=== PATIENT | male | born 1970 | race Caucasian/White ===

== ENCOUNTER 2018-05-17 06:12 | Emergency (ER) | payer MEDICAID, SELFPAY ==
[2018-05-17 06:13] VITALS: BP 132/71; PULSE 63; RESP 15; TEMP 36.6; O2SAT 97; BMI 28.0
--- NOTE | 2018-05-17 06:19 | ED.VISSUMM ---
- ER Visit Summary Date of Service: 05/17/18 Chief Complaint: [] Injury to his left middle and long finger History of Present Illness: The patient is a 47 M injured the above fingers in his garage door yesterday. He accidentally close his garage door manually on them. He cut his middle finger. Comes in for further evaluation. Using ibuprofen. Last tetanus unknown Physical Examination: [] Vital signs reviewed General: Well-nourished well-developed Head: Normocephalic atraumatic Eyes: Pupils equal round and reactive to light extraocular movements intact ENT: TMs clear no hemotympanum no trauma Neck: Nontender full range of motion Cardiovascular: Regular rate rhythm no murmurs normal S1-S2 Respiratory: No distress clear to auscultation bilaterally chest nontender Abdomen: Soft nontender nondistended normal bowel sounds no masses Back: Nontender no CVA tenderness Extremities: Tenderness distal phalanx of the middle and long fingers. Superficial laceration on the distal phalanx of the middle finger. Measures 1 cm Neuro alert oriented cranial nerves II through XII intact normal strength sensation reflexes Test Results: [] Emergency Department Course and Treatment: [] X-ray of the hand obtained. Tetanus updated. X-ray negative. Wound washed with chlorhexidine and local digital block was obtained with lidocaine. Washed with 500 cc of saline. Closed with 3 simple five-point 0 sutures. Finger splint applied. Will follow-up as an outpatient. Treatment Plan: [] Disposition: [] Impression: [] Laceration-finger Finger contusions This note was generated with [employer] dictation software. It may contain incorrect words, spelling, and punctuation that were not noted in review of the chart prior to signing ED Disposition - Plan for ED Patient: Chief Complaint: Upper Extremity Injury Referrals: Puja Hernandez MD [Primary Care Provider] -
--- NOTE | 2018-05-17 06:25 | RAD_ITS ---
STUDY: X-RAY - LEFT HAND REASON FOR EXAM: Male, 47 years old. Trauma to the left-sided index and middle fingers. TECHNIQUE: 3 view(s) of the hand. COMPARISON: Prior comparison studies are not available for review at this time. FINDINGS: Normal radiocarpal articulation. Normal distal radioulnar joint. Normal visualized carpal bones. Normal carpal articulations There is degenerative arthrosis of the carpometacarpal (CMC) articulation of the thumb. Normal second through fifth carpometacarpal joints. Normal metacarpi. Normal metacarpophalangeal joint of the thumb. Normal interphalangeal joint of the thumb. Normal proximal and distal phalanges of the thumb. Normal metacarpophalangeal joints of the second through fifth fingers. Normal proximal and distal interphalangeal joints of the second through fifth fingers. Appears to be an undisplaced fracture of the distal phalanx of the middle finger. The phalanges otherwise have a normal appearance. There is soft tissue swelling. RAD/Hand Min 3 Views IMPRESSION: 1. Undisplaced fracture of the distal phalanx of the middle finger. 2. Soft tissue contusions. Electronically Signed: Tete Lei MD at 7:04 EDT , Service support ,
[2018-05-17] MEDS: Diphth,Pertuss(Acell),Tet Vac 0.5 ML Vial IM (06:38)
--- NOTE | 2018-05-17 07:00 | ED.DEP ---
ED Disposition - Plan for ED Patient: Disposition: Home or Assisted Living Chief Complaint: Upper Extremity Injury Instructions: ED Crush Injury Finger No Fx, ED Laceration All Referrals: Puja Hernandez MD [Primary Care Provider] -
[2018-05-17 07:27] VITALS: BP 124/77; PULSE 68; RESP 17; O2SAT 98
== END 2018-05-17 07:28 | disposition home or self-care (01) ==
PROVIDERS: Emergency Provider Emergency Medicine; Family Provider Internal Medicine; PCP Internal Medicine
DX: S61.213A Laceration without foreign body of left middle finger without damage to nail, initial encounter (principal); S60.022A Contusion of left index finger without damage to nail, initial encounter; S60.032A Contusion of left middle finger without damage to nail, initial encounter; W45.8XXA Other foreign body or object entering through skin, initial encounter; Y93.89 Activity, other specified; Y92.008 Other place in unspecified non-institutional (private) residence as the place of occurrence of the external cause
CPT/HCPCS: 12001; 73130; 90471; 90715; 99283

== ENCOUNTER 2022-04-30 21:03 | Emergency (ER) | payer MEDICAID, SELFPAY ==
[2022-04-30 21:07] VITALS: BP 124/73; PULSE 65; RESP 16; TEMP 36.1; O2SAT 98; BMI 26.6
--- NOTE | 2022-04-30 21:41 | CT_ITS ---
EXAM: CT ABDOMEN AND PELVIS WITH INTRAVENOUS CONTRAST CLINICAL INDICATION: abdominal pain, rectal bleeding TECHNIQUE: Helically acquired images were obtained of the abdomen and pelvis with intravenous contrast. This CT exam was performed using one or more of the following dose reduction techniques: automated exposure control, adjustment of the mA and/or kV according to patient size, and/or use of iterative reconstruction technique. This report was created using [employer] report generation technology. CONTRAST: 100 cc of Isovue-300 IV. RADIATION DOSE: CTDIvol = 15.85 mGy, DLP = 1010.87 mGy-cm. COMPARISON: None. FINDINGS: LOWER THORAX: Unremarkable. Lung bases are clear. No cardiomegaly. No significant pericardial effusion. ABDOMEN: LIVER: Unremarkable. Homogeneous. No focal mass. GALLBLADDER AND BILE DUCTS: Slight high density in the gallbladder may be due to cholelithiasis. No gallbladder distention or wall edema. No intra- or extrahepatic biliary ductal dilation. PANCREAS: Unremarkable. No focal cystic or solid mass. SPLEEN: Unremarkable. Normal size without focal cystic or solid mass. ADRENALS: Unremarkable. No nodules. KIDNEYS AND URETERS: Unremarkable. Normal renal size and position. No hydronephrosis. STOMACH AND BOWEL: Moderate wall thickening of the descending colon through the rectum with mild pericolonic stranding. No stomach or bowel distention. PELVIS: APPENDIX: Normal appendix. BLADDER: Unremarkable. REPRODUCTIVE: Mild enlargement of the prostate measuring 5.2 cm in diameter. ABDOMEN and PELVIS: INTRAPERITONEAL SPACE: Unremarkable. No ascites or other fluid collection. No free air. BONES/JOINTS: Unremarkable. No suspicious lytic or blastic abnormality. SOFT TISSUES: Unremarkable. No discrete abdominal or pelvic wall hernia. VASCULATURE: Unremarkable. Abdominal aorta is non-dilated. LYMPH NODES: Unremarkable. No enlarged lymph nodes. CT/Abdomen/Pelvis W IV Cont ONLY IMPRESSION: 1. Colitis involving the descending colon to the rectum. This may be due to infection or inflammatory bowel disease such as ulcerative colitis. 2. Slight high density in the gallbladder may be due to cholelithiasis. Electronically Signed: Edgar Basurto MD at 23:24 EDT ,
--- NOTE | 2022-04-30 21:42 | EDS_ITS ---
HPI HPI - GI History of Present Illness Chief Complaint: GI Bleed Detail of Chief Complaint: Abdominal pain and rectal bleeding Informant: patient Narrative Narrative: Patient presents to the emergency department complaint of abdominal pain and rectal bleeding that started 7 weeks ago. Patient states that with every bowel movement he has bright red blood. He describes abdominal pain and cramping intermittently. Patient saw his primary care physician recently who did blood work last week and apparently has blood counts looked good. Patient was referred to GI for follow-up but not till next month. Patient does not have a family history of colon cancer or history of inflammatory bowel disease. He denies fevers. Patient is never had a colonoscopy. Prior similar symptoms: No PFSH [facility] Medical History (Updated 04/30/22 @ 23:[address] Sanjana Bang, DO) Diabetes Enlarged prostate PTSD (post-traumatic stress disorder) Home Medications sertraline 100 mg tablet 100 mg PO DAILY 05/17/18 [History Last Taken 05/16/18] terazosin 5 mg capsule 5 mg PO BID 05/17/18 [History Last Taken 05/16/18] ciprofloxacin HCl 500 mg tablet 500 mg PO BID #20 TABLETS 04/30/22 [Rx Last Taken Unknown] metformin 500 mg tablet 1,000 tab PO BID 04/30/22 [History Last Taken Unknown] metronidazole 500 mg tablet 500 mg PO TID #30 tabs 04/30/22 [Rx Last Taken Unknown] Allergy/AdvReac Type Severity Reaction Status Date / Time No Known Allergies Allergy Verified 04/30/22 21:09 Social History Smoking Status: Former smoker ROS ROS ED Review of Systems ROS Unobtainable: other Constitutional Constitutional ED: Reports lethargy; Denies chills, fever(s), sweats or weight loss Eyes Eyes: Denies blurry vision, change in vision or diplopia ENT ENT ED: Denies rhinorrhea or sore throat Cardiovascular Cardiovascular: Reports chest pain and racing heartbeat; Denies orthopnea Respiratory/Chest Respiratory/Chest: Reports dyspnea and dyspnea on exertion; Denies cough, orthopnea or sputum Gastrointestinal Gastrointestinal: Reports abdominal pain and other Details: Bright red blood per rectum ; Denies diarrhea, nausea or vomiting Genitourinary Genitourinary ED: Denies dysuria, hematuria or urinary frequency Musculoskeletal Musculoskeletal: Denies arthralgias, back pain, myalgias or neck pain Integumentary Denies abscess, Abrasions or rash Neurologic Neurologic: Denies headache(s) or weakness Psychiatric Psychiatric: Denies anxiety, depression or suicidal thoughts Endocrine Endocrinology: Denies polydipsia, polyphagia or polyuria Hematologic/Lymphatic Hematologic/Lymphatic: Denies easy bleeding, easy bruising or lymphadenopathy Allergic/Immunologic Allergic/Immunologic ED: Denies mouth swelling, tongue swelling or urticaria EXAM Physical Exam Const Vital Signs: 04/30/22 21:07 Temperature 96.9 F L Temperature Source Temporal Pulse Rate 65 Respiratory Rate 16 Blood Pressure 124/73 H Blood Pressure Mean 90 Pulse Ox 98 Oxygen Delivery Method Room Air Positive well nourished and well developed General Appearance ED: well developed and NAD HEENT Reports TM's clear and moist mucous membranes normocephalic and atraumatic; Negative for trauma or tenderness Tympanic Membrane ED: Yes TM's clear Eyes PERRL and EOMs intact bilaterally General Eye ED: Negative for pale conjunctiva or scleral icterus Neck no lymphadenopathy, supple and no JVD General: Negative for tenderness Chest Wall inspection of chest normal and palpation of chest normal Chest: Negative for tenderness Resp normal respiratory effort and clear to auscultation bilaterally Effort and Inspection: Negative for respiratory distress or pain with movement Auscultation: Negative for rhonchi, wheezes or diminished lung sounds Cardio regular rate, regular rhythm, S1 normal heart sound, S2 normal heart sound and no murmurs Peripheral Pulses: pulses 2+ throughout GI normal to inspection, nondistended, normoactive bowel sounds, soft to palpation, non-distended and no masses GI Narrative: Patient has diffuse tenderness palpation of the abdomen. There is no rebound, rigidity, or peritoneal signs. Rectal exam performed and did not show any hemorrhoids or fissures. On digital rectal exam no masses palpated in the rectal vault. He had bright red blood on exam. Back/Spine no CVA tenderness and no thoracic nor lumbar tenderness Extremity normal to inspection General Extremety ED: Negative for edema General Extremity: Negative for edema Neuro oriented x3, CN's II-XII intact bilaterally, no sensory deficits noted and gait normal Sensorium / Orientation: awake, alert, oriented to person, oriented to place and oriented to time Motor Exam: strength 5/5 throughout and strength abnormal Psych mental status grossly normal Skin no rashes or lesions noted and no wounds MDM MDM MDM Narrative Medical decision making narrative: IV line established on arrival. Lab work-up essentially unremarkable and lactate was 1.5. Patient had a CT scan of the abdomen pelvis with IV contrast that was read by radiology as colitis involving the descending colon to the rectum. This may be due to infection or inflammatory bowel disease such as ulcerative colitis. Case was discussed with general surgeon on-call who asked that we place patient on antibiotics and have him follow-up with their office. Lab Data Attestation: I reviewed the patient's lab results. Labs: Laboratory Results - last 24 hr 04/30/22 04/30/22 04/30/22 21:50 21:50 21:50 WBC 11.1 H RBC 4.38 L Hgb 13.0 Hct 38.6 L MCV 88.1 MCH 29.7 MCHC 33.7 RDW Std Deviation 42.4 RDW Coeff of Caryn 13.2 Plt Count 329 MPV 9.4 Immature Gran % (Auto) 0.700 Neut % (Auto) 66.5 Lymph % (Auto) 16.9 L Dukes % (Auto) 9.5 Eos % (Auto) 5.8 H Baso % (Auto) 0.6 Absolute Neuts (auto) 7.4 Absolute Lymphs (auto) 1.87 Nucleated RBC % 0 Sodium 140 Potassium 4.0 Chloride 106 Carbon Dioxide 29.0 Anion Gap 5 BUN 19 H Creatinine 1.01 Estim Creat Clear Calc 76.33 Est GFR (MDRD) Af Amer 99 Est GFR (MDRD) Non-Af 82 BUN/Creatinine Ratio 18.8 Glucose 145 H Lactic Acid 1.5 Calcium 9.1 Total Bilirubin 0.30 AST 16 ALT 23 Alkaline Phosphatase 42 L Total Protein 6.8 Albumin 3.3 Globulin 3.5 Albumin/Globulin Ratio 0.9 Radiography Diagnostic Testing: Clinical Impression(s) from Imaging Studies Abdomen/Pelvis CT 04/30/22 21:41 IMPRESSION: 1. Colitis involving the descending colon to the rectum. This may be due to infection or inflammatory bowel disease such as ulcerative colitis. 2. Slight high density in the gallbladder may be due to cholelithiasis. Electronically Signed: Edgar Basurto MD at 23:24 EDT , Discharge Plan Triage Chief Complaint: GI Bleed ED Provider: Sanjana Bang Dx/Rx/DC Orders Clinical Impression: Colitis, Rectal bleed Instructions: Bleeding Gastrointestinal, ED Understanding Colitis, ED Lower GI Bleeding (Stable) Prescriptions: New ciprofloxacin HCl [ciprofloxacin HCl] 500 MG tablet 500 mg PO BID Qty: 20 0RF metronidazole 500 mg tablet 500 mg PO TID Qty: 30 0RF No Action terazosin 5 MG capsule 5 mg PO BID sertraline 100 MG tablet 100 mg PO DAILY Label Comments: TAKE 1 TABLET EVERY DAY metformin 500 mg tablet 1,000 tab PO BID Label Comments: TAKE 2 TABLETS BY MOUTH TWICE DAILY WITH MEALS Primary Care Provider: Puja Hernandez Referrals: Puja Hernandez MD [Primary Care Provider] - Allyson Cason MD [STAFF PHYSICIAN] - 3-5 Days Disposition Disposition: Home, Self Care
[2022-04-30] MEDS: 0.9% Normal Saline 1,000 ML 125 ML IV (21:54)
[2022-04-30 22:04] LABS: Absolute Lymphocyte Count 1.87 X10^3/uL (0.83-4.51); Absolute Neutrophil Count 7.4 X10^3/uL (2.0-7.7); Basophil# 0.07 X10^3/uL; Basophil% 0.6 % (0-1); Eosinophil# 0.64 X10^3/uL; Eosinophils% 5.8 % (0-5); Hematocrit 38.6 % (40-54); Lymphocyte # 1.87 X10^3/ul (0.83-4.51); Lymphocyte % 16.9 % (19-41); Mean Corp Hgb Conc 33.7 g/dL (32-36); Mean Corpuscular Hgb 29.7 pg (27.0-32.0); Mean Corpuscular Volume 88.1 fL (80-94); Mean Platelet Vol. 9.4 fl (6.2-12.0); Monocyte# 1.05 X10^3/uL; Monocyte% 9.5 % (0-10); NRBC Flagged by Analyzer 0 % (0-5); Neutrophil # 7.38 X10^3/uL (2.7-7.7); Neutrophil % 66.5 % (47-70); Platelet Count 329 K/mm3 (150-450); RBC Distribution Width CV 13.2 % (11.6-14.6); RBC Distribution Width SD 42.4 fl (35.1-43.9); Red Blood Count 4.38 M/mm3 (4.6-6.2); White Blood Count 11.1 K/mm3 (4.4-11.0)
[2022-04-30 22:34] LABS: ALB/GLOB Ratio 0.9 RATIO (0.9-2.4); AST(SGOT) 16 U/L (15-37); Alanine Aminotransfer ALT/SGPT 23 U/L (16-61); Albumin, Serum 3.3 g/dL (3.2-5.0); Alkaline Phosphatase 42 U/L (45-117); Anion Gap 5 (5-15); BUN 19 mg/dL (7-18); BUN/Creat Ratio 18.8 RATIO (10-20); Calcium,Total 9.1 mg/dL (8.5-10.1); Chloride 106 mmol/L (98-107); Creatinine, Serum 1.01 mg/dL (0.70-1.30); EST Glomerular Filtration Rate 82 mL/min (>60); Est Glom Filt Rate - Afr Amer 99 mL/min (>60); Estimated Creatinine Clearance 76.33 ml/min; Globulin 3.5 g/dL (2.2-4.2); Glucose 145 mg/dL (74-106); Protein, Total 6.8 g/dL (6.4-8.2); Sodium Level 140 mmol/L (136-145)
[2022-04-30 22:35] LABS: Lactic Acid 1.5 mmol/L (0.4-1.9)
[2022-04-30] MEDS: metroNIDAZOLE 500 MG Tablet PO (23:57)
[2022-04-30] MEDS: Ciprofloxacin 500 MG Tablet PO (23:57)
== END 2022-05-01 00:08 | disposition home or self-care (01) ==
PROVIDERS: Emergency Provider Emergency Medicine; PCP Internal Medicine; Visit Provider Emergency Medicine
DX: K52.9 Noninfective gastroenteritis and colitis, unspecified (principal); E11.9 Type 2 diabetes mellitus without complications; Z79.84 Long term (current) use of oral hypoglycemic drugs; Z87.891 Personal history of nicotine dependence; Z80.0 Family history of malignant neoplasm of digestive organs
CPT/HCPCS: 74177; 80053; 83605; 85025; 96360; 96361; 99283; J7030; Q9967; A4216

== ENCOUNTER 2022-05-10 07:13 | Day surgery (SDC) | payer MEDICAID, SELFPAY ==
[2022-05-10 07:45] VITALS: BP 107/62; PULSE 68; RESP 18; TEMP 36.4; O2SAT 99; BMI 25.6
[2022-05-10] MEDS: Lactated Ringers 1,000 ML 15 ML IV (07:50)
--- NOTE | 2022-05-10 08:08 | HP.PCM_ITS ---
History and Physical Date of Admission: 05/10/22 Date of Service:? 05/04/22 MR#: [id number] Acct: [id number] Name:ERWIN STEVENSON Rep #: [id number] : 1970 ? ? Provider: Dr. Allyson Cason MD Age/Sex:? 51/M ? ? Location: [facility] Status: Signed Intake Vital Signs ? 04/30/2221:07 05/04/2208:34 Height 5 ft 6 in 5 ft 6 in Weight: 165 lb 166 lb BMI 26.6 26.8 BP 124/73 H 102/63 Blood Pressure Location ? Rt brachial Position ? Sitting Respiration 16 17 Pulse 65 63 Pulse Source ? Monitor Temp 96.9 F L 97.3 F L Temp Source Temporal Temporal Pulse Oximetry (%) 98 98 Oxygen Delivery Method ? 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 Is patient in pain?: No Allergies No Known Allergies Allergy (Verified 05/04/22 08:35) Medications sertraline 100 mg tablet 100 mg PO DAILY 05/17/18 [History Confirmed 05/04/22] terazosin 5 mg capsule 5 mg PO BID 05/17/18 [History Confirmed 05/04/22] ciprofloxacin HCl 500 mg tablet 500 mg PO BID #20 TABLETS 04/30/22 [Rx Confirmed 05/04/22] metformin 500 mg tablet 1,000 tab PO BID 04/30/22 [History Confirmed 05/04/22] metronidazole 500 mg tablet 500 mg PO TID #30 tabs 04/30/22 [Rx Confirmed 05/04/22] PFSH Medical History?(Updated 05/04/22 @ 08:33 by Sintia Sunday) Diabetes Enlarged prostate Hemorrhoids PTSD (post-traumatic stress disorder) Family History?(Updated 05/04/22 @ 08:34 by Sintia Sunday) Father Diabetes Hypertension Kidney diseaseMother Diabetes Hypertension Heart disease CVA (cerebral vascular accident)Sister Diabetes Social History?(Updated 05/04/22 @ 08:34 by Sintia Sunday) Smoking Status:? Former smoker alcohol intake:? never substance use type:? does not use HPI HPI Surgical H&P: Yes HPI: ERWIN QIU, is a 51 M who presents to the office today for colitis.? Patient states for about the last 7 weeks he has had bright red blood per rectum has had clots with this as well.? Patient never had this previously.? Patient also more recently has started having increased diarrhea.? Patient went to the ER CT abdomen pelvis was done which showed colitis of the descending colon to rectum.? Patient was given Cipro and Flagyl by the ER.? Since starting the antibiotics patient states bleeding has decreased.? Patient denies having any abdominal pain prior to starting the antibiotics now states that he can have discomfort in his abdomen especially after eating.? Patient never had a previous colonoscopy.? Denies any family history of colon cancer. ROS General General: Yes weight change and fatigue; No appetite, colon cancer, breast cancer or weakness HEENT HEENT: No difficulty swallowing, eye injury, eye surgery, swollen glands or hoarseness Endo Endocrine: Yes diabetes mellitus; No thyroid disease, thyroid cancer, Hair loss, heat intolerance or cold intolerance Skin Skin: No rash or changing moles Musc Musculoskeletal: No back problems, arthritis, rheumatoid arthritis, gout or joint pain Cardio Cardiovascular: No murmur, pacemaker, heart disease, atrial fibrillation, high blood pressure, heart attack, heart stent, palpitations, shortness of breat with exertion or chest pain Psych Psychiatric: No depression, anxiety or hearing voices Resp Respiratory: Yes shortness of breath, No sleep apnea, Yes cough, No COPD, No asthma, No emphysema and No wheezing Gastro Gastrointestinal: Yes abdominal pain, Yes nausea or vomiting, Yes diarrhea, No constipation, Yes blood in stool, Yes acid reflux, Yes hemorrhoids, No ulcers, No gallbladder problem and No black,tarry stools Seth Hematologic: No blood thinners, No blood disorders, No bleeding, No anemia and No blood clots Neuro Neurologic: No system reviewed and no additional complaints, except as documented, No as per HPI, No abnormal gait, No abnormal hearing, No abnormal movements, No abnormal speech, No behavioral changes, No burning sensations, No confusion, No convulsions, No disequilibrium, No dizziness, No localized weakness, No frequent falls, No headache(s), No lack of coordination, No loss of vision, No memory loss, No numbness, No other visual disturbances, No radicular pain, No restless legs, No sensory deficit, No syncope, Yes tingling (arms), No tremor(s), No weakness and No other Exam Const General: cooperative, healthy appearing and no acute distress [facility] Head: normal to inspection Resp Effort & Inspection: normal respiratory effort Cardio Rate: regular rate GI Inspection: non-distended Palpation: soft, no guarding, no hernias and tender in the LLQ and in the LUQ; with no rebound tenderness Skin General: no rashes or lesions noted Neuro General: patient oriented x3 Extrem General: no clubbing, cyanosis or edema Psych Affect: normal affect COVID (Procedure Consent) Procedure Criteria Procedure Criteria: Yes Elective The surgeon/proceduralist and patient have discussed in detail the risk of exposure to and/or potential harm posed by the COVID-19 virus with having a surgery/procedure at this time versus the risk of? delaying the surgery/procedure. It is not possible to know either the risk of delaying the surgery or procedure or chance of getting an infection with perfect accuracy, but a joint decision was made between the patient and the surgeon/proceduralist ?to proceed at this time with the scheduled surgery/procedure as indicated on the consent form. Assessment and Plan Assessment and Plan (1) Rectal bleed: ?Status:?Acute (2) Colitis: ?Status:?Acute (3) Diarrhea: ?Status:?Acute Plan I have discussed the above with the patient. I have offered the patient colonoscopy for evaluation.? Discussed with patient that the colitis does look quite involved/severe may just get biopsies and abort the rest of the colonoscopy. I have explained the risks/benefits of the procedure and described the procedure.? I have discussed the risks with the patient, including but not limited to:? infection, bleeding, perforation of the GI tract requiring emergency surgery, inability to complete the procedure, injury to any internal organs, complications of anesthesia, etc. - the patient understands and agrees to proceed. I have answered all the patient's questions to the patient's satisfaction and the patient has no further questions. The patient has been given instructions for the colon cleansing preparation.? 1 day of clears, MiraLAX Dulcolax split prep. Allyson Cason M.D. Pager: [phone] [facility] [address] [place] [address], [address] [place] [address] Office: [phone] Coding Level of Care Code Off vis,new,level 3 Diagnoses Rectal bleed? K62.5 Colitis? K52.9 Diarrhea? R19.7 05/04/22 0919 <Electronically signed by Allyson Cason MD> Date Allyson Cason MD
--- NOTE | 2022-05-10 09:00 | COLBX_PTH ---
PATIENT: ERWIN QIU LOC: EN U#:[id number] AGE/SX: 51/M ROOM: RE05/10/[address]: Dr. Allyson Cason MD : 1970 BED: DIS: 05/10/2022 SPEC #: [id number] RECD: 05/10/22 10:54 STATUS: ERIKA RESagrario #: [id number] ANDERSON: 05/10/22 09:[address]: Allyson Cason DEPT: SURGICAL PATHOLOGY RECD BY: Linda Vinson ENTERED: 05/10/22 11:26 SP TYPE: COLON BX OTHR DR: Dr. Puja Hernandez MD Tissues: A - Ileum, NOS B - Ascending colon C - Transverse colon D - Descending colon E - Sigmoid colon biopsy F - Rectum, NOS Procedures: Surgery Specimen Level IV HEADER OPERATION: Colonoscopy (MAC) PRE-OP DIAGNOSIS: Rectal bleed, colitis, diarrhea TISSUE SUBMITTED: A ? Terminal ileum biopsy, B ? Ascending colon biopsy, C ? Transverse colon biopsy, D ? Descending colon biopsy, E ? Sigmoid colon biopsy, F ? Rectum biopsy MICROSCOPIC DIAGNOSIS A. Terminal ileum, biopsy: A fragment of small intestinal mucosa, no pathologic diagnosis. B. Ascending colon, biopsy: Moderate chronic active colitis. See microscopic description and comment. C. Transverse colon, biopsy: Moderate chronic active colitis. See microscopic description and comment. D. Descending colon, biopsy: Moderate chronic active colitis. See microscopic description and comment. E. Sigmoid colon, biopsy: Moderate chronic active colitis. See microscopic description and comment. F. Rectum, biopsy: Moderate chronic active colitis. See microscopic description and comment. SJ:rg 05/11/2022 COMMENT B-F. The findings are consistent with inflammatory disease (ulcerative colitis). Correlation with clinical, endoscopic findings and appropriate follow up are necessary. MICROSCOPIC DESCRIPTION Slides are reviewed. B-F. The specimens show similar morphological features. The specimens show fragments of colonic mucosa with moderate acute and chronic inflammatory cells infiltrates in the lamina propria, cryptitis, crypt abscesses and minimal glandular distortion. No evidence of dysplasia. GROSS DESCRIPTION A - Received in fixative is one container labeled with the patient's name and designated terminal ileum biopsy. The specimen consists of one irregular fragment of light costa soft tissue that measures 0.3 x 0.3 x 0.1 cm. The specimen is totally submitted in one cassette. B - Received in fixative is one container labeled with the patient's name and designated ascending colon biopsy. The specimen consists of two irregular fragments of light costa soft tissue that in aggregate measure 0.6 x 0.3 x 0.1 cm. The specimen is totally submitted in one cassette. C - Received in fixative is one container labeled with the patient's name and designated transverse colon biopsy. The specimen consists of multiple irregular fragments of light costa soft tissue that in aggregate measure 1 x 0.2 x 0.1 cm. The specimen is totally submitted in one cassette. D - Received in fixative is one container labeled with the patient's name and designated descending colon biopsy. The specimen consists of multiple irregular fragments of light costa soft tissue that in aggregate measure 0.5 x 0.3 x 0.1 cm. The specimen is totally submitted in one cassette. E - Received in fixative is one container labeled with the patient's name and designated sigmoid colon biopsy. The specimen consists of two irregular fragments of light costa soft tissue that in aggregate measure 0.6 x 0.3 x 0.1 cm. The specimen is totally submitted in one cassette. F - Received in fixative is one container labeled with the patient's name and designated rectum biopsy. The specimen consists of one irregular fragment of light costa soft tissue that measures 0.3 x 0.3 x 0.1 cm. The specimen is totally submitted in one cassette. / SJ:nika 05/10/2022 TC:2 CPT: 89831 x6
[2022-05-10 09:01] LABS: Bedside Glucose 104 mg/dL (74-106)
[2022-05-10 09:37] VITALS: BP 107/62; BP 98/58; PULSE 69; RESP 16; TEMP 36.6; O2SAT 100
--- NOTE | 2022-05-10 09:42 | OP.COLON_ITS ---
Patient Name: Edis Duenas Procedure Date: 05/10/2022 9:06 AM Date of : 1970 Age: 51 Procedure: Colonoscopy Indications: Gastrointestinal occult blood loss, Abnormal CT of the GI tract Providers: Allyson Cason MD Referring MD: Puja Hernandez Medicines: Monitored Anesthesia Care Patient Profile: This is a 51 year old male. Last Colonoscopy: none. The patient's first colonoscopy is today. Complications: No immediate complications. Procedure: Pre-Anesthesia Assessment: - Prior to the procedure, a History and Physical was performed, and patient medications and allergies were reviewed. The patient's tolerance of previous anesthesia was also reviewed. The risks and benefits of the procedure and the sedation options and risks were discussed with the patient. All questions were answered, and informed consent was obtained. Prior Anticoagulants: The patient has taken no previous anticoagulant or antiplatelet agents. ASA Grade Assessment: Per anesthesia. After reviewing the risks and benefits, the patient was deemed in satisfactory condition to undergo the procedure. After I obtained informed consent, the scope was passed under direct vision. Throughout the procedure, the patient's blood pressure, pulse, and oxygen saturations were monitored continuously. The pediatric colonoscope was introduced through the anus and advanced to the terminal ileum. The colonoscopy was performed without difficulty. The patient tolerated the procedure well. The quality of the bowel preparation was good. Scope In: 9:16:45 AM Scope Withdrawal Time 0 hours 8 minutes 37 seconds Scope Out: 9:32:03 AM Total Procedure Duration Time 0 hours 15 minutes 18 seconds Findings: The perianal and digital rectal examinations were normal. A continuous area of bleeding ulcerated mucosa with stigmata of recent bleeding was present in the entire colon. Five random biopsies were obtained with cold forceps for histology in a targeted manner in the rectum, in the sigmoid colon, in the descending colon, in the transverse colon and in the ascending colon. Biopsies were taken with a cold forceps for histology. The terminal ileum appeared normal. Biopsies were taken with a cold forceps for histology. Impression: - Mucosal ulceration. Biopsied. - The examined portion of the ileum was normal. Biopsied. - Five random biopsies were obtained in the rectum, in the sigmoid colon, in the descending colon, in the transverse colon and in the ascending colon. Recommendation: - Discharge patient to home. - Resume previous diet. - Continue present medications. - Await pathology results. - Refer to a boom operator at appointment to be scheduled. - Repeat colonoscopy for surveillance based on pathology results. Procedure Code(s): --- Professional --- 49422, PT, Colonoscopy, flexible; with biopsy, single or multiple Diagnosis Code(s): --- Professional --- K63.3, Ulcer of intestine R19.5, Other fecal abnormalities R93.3, Abnormal findings on diagnostic imaging of other parts of digestive tract CPT copyright 2017 [employer] [place] [employer] [employer]. All rights reserved. The codes documented in this report are preliminary and upon broadband technician review may be revised to meet current compliance requirements. MD Allyson Brito MD 05/10/2022 9:41:58 AM This report has been signed electronically. Number of Addenda: 0 Note Initiated On: 05/10/2022 9:06 AM
--- NOTE | 2022-05-10 09:43 | OP.CCLET_ITS ---
05/10/2022 Puja Hernandez [address] [place] [address] Re : Colonoscopy procedure for Edis Duenas Dear Dr. Hernandez This procedure was performed on Tuesday, May 10, 2022. My impressions and recommendations are as follows: Impressions : - Mucosal ulceration. Biopsied. - The examined portion of the ileum was normal. Biopsied. - Five random biopsies were obtained in the rectum, in the sigmoid colon, in the descending colon, in the transverse colon and in the ascending colon. Recommendations : - Discharge patient to home. - Resume previous diet. - Continue present medications. - Await pathology results. - Refer to a home office claim specialist at appointment to be scheduled. - Repeat colonoscopy for surveillance based on pathology results. My findings are described in the full procedure note, which is enclosed. If I can be of further assistance, please feel free to contact me at Doctor phone number(s): , Work: . Sincerely, MD Allyson Brito MD 05/10/2022 9:41:58 AM This report has been signed electronically.
[2022-05-10 09:45] VITALS: BP 107/62; BP 95/55; PULSE 65; RESP 16; O2SAT 100
[2022-05-10 09:50] VITALS: BP 107/62; BP 115/72; PULSE 66; RESP 16; O2SAT 100
[2022-05-10 09:54] VITALS: BP 107/62; BP 109/68; PULSE 68; RESP 16; TEMP 36.6; O2SAT 100
[2022-05-10 10:15] VITALS: BP 107/62
== END 2022-05-10 10:19 | disposition home or self-care (01) ==
LOC: EN 07:14 → AC 07:15
PROVIDERS: PCP Internal Medicine; Referring Provider Internal Medicine; Visit Provider Surgery
PROC: 0DJD8ZZ Inspection of Lower Intestinal Tract, Via Natural or Artificial Opening Endoscopic (ICD-10-PCS; CPT 45378; principal; 2022-05-10 08:55)
DX: K52.9 Noninfective gastroenteritis and colitis, unspecified (principal); E11.9 Type 2 diabetes mellitus without complications; K63.3 Ulcer of intestine; R93.3 Abnormal findings on diagnostic imaging of other parts of digestive tract; R19.5 Other fecal abnormalities; K62.5 Hemorrhage of anus and rectum; N40.0 Benign prostatic hyperplasia without lower urinary tract symptoms; F43.10 Post-traumatic stress disorder, unspecified; Z79.84 Long term (current) use of oral hypoglycemic drugs; Z79.899 Other long term (current) drug therapy; Z87.891 Personal history of nicotine dependence
CPT/HCPCS: 45380; 82962; 87426; 88305; C9803; J7120; J2405

== ENCOUNTER → 2022-05-12 | Outpatient (CLI) | payer MEDICAID, SELFPAY ==
[2022-05-12 13:47] LABS: Erythrocyte Sedimentation Rate 24 mm/hr (0-20)
[2022-05-12 13:49] LABS: Absolute Lymphocyte Count 0.68 X10^3/uL (0.83-4.51); Absolute Neutrophil Count 14.6 X10^3/uL (2.0-7.7); Basophil# 0.05 X10^3/uL; Basophil% 0.3 % (0-1); Eosinophil# 0.01 X10^3/uL; Eosinophils% 0.1 % (0-5); Hematocrit 36.7 % (40-54); Hemoglobin 12.5 g/dL (13.0-16.5); Lymphocyte # 0.68 X10^3/ul (0.83-4.51); Lymphocyte % 4.3 % (19-41); Mean Corp Hgb Conc 34.1 g/dL (32-36); Mean Corpuscular Hgb 29.4 pg (27.0-32.0); Mean Corpuscular Volume 86.4 fL (80-94); Mean Platelet Vol. 9.1 fl (6.2-12.0); Monocyte# 0.46 X10^3/uL; Monocyte% 2.9 % (0-10); NRBC Flagged by Analyzer 0 % (0-5); Neutrophil # 14.58 X10^3/uL (2.7-7.7); Neutrophil % 91.1 % (47-70); Platelet Count 427 K/mm3 (150-450); RBC Distribution Width CV 13.7 % (11.6-14.6); RBC Distribution Width SD 42.7 fl (35.1-43.9); Red Blood Count 4.25 M/mm3 (4.6-6.2)
[2022-05-12 14:03] LABS: ALB/GLOB Ratio 0.8 RATIO (0.9-2.4); AST(SGOT) 14 U/L (15-37); Alanine Aminotransfer ALT/SGPT 22 U/L (16-61); Albumin, Serum 3.2 g/dL (3.2-5.0); Alkaline Phosphatase 41 U/L (45-117); Anion Gap 6 (5-15); BUN 13 mg/dL (7-18); BUN/Creat Ratio 14.3 RATIO (10-20); Calcium,Total 9.1 mg/dL (8.5-10.1); Chloride 106 mmol/L (98-107); Creatinine, Serum 0.91 mg/dL (0.70-1.30); EST Glomerular Filtration Rate 92 mL/min (>60); Est Glom Filt Rate - Afr Amer 111 mL/min (>60); Globulin 3.9 g/dL (2.2-4.2); Glucose 168 mg/dL (74-106); LDH 198 U/L (87-241); Potassium 3.7 mmol/L (3.5-5.1); Protein, Total 7.1 g/dL (6.4-8.2); Sodium Level 138 mmol/L (136-145)
[2022-05-15 13:07] LABS: Anti-Centromere B Ab <0.2 AI (0.0-0.9); Anti-Chromatin <0.2 AI (0.0-0.9); Anti-Jo <0.2 AI (0.0-0.9); Anti-Scleroderma-70 AB <0.2 AI (0.0-0.9); RNP Ab <0.2 AI (0.0-0.9); SJOGREN'S Anti-SS-A test < 0.2 AI (0.0-0.9); SJOGREN'S Anti-SS-B test < 0.2 AI (0.0-0.9); Smith Ab <0.2 AI (0.0-0.9)
[2022-05-15 14:12] LABS: Anti-dsDNA Ab <1 IU/mL (0-9)
[2022-05-15 17:07] LABS: Endomysial Antibody IgA Negative (Negative)
[2022-05-15 21:01] LABS: Immunoglobulin A 199 mg/dL (90-386); t-Transglutaminase IgA <2 U/mL (0-3)
== END | disposition home or self-care (01) ==
LOC: LAB 13:24
PROVIDERS: PCP Internal Medicine; Visit Provider Surgery
DX: K51.90 Ulcerative colitis, unspecified, without complications (principal)
CPT/HCPCS: 86480; 36415; 80053; 80074; 82784; 82785; 83516; 83615; 84165; 85025; 85652; 86140; 86225; 86235; 86255; 86256; 86334

== ENCOUNTER → 2022-05-15 | Outpatient (CLI) | payer MEDICAID, SELFPAY ==
[2022-05-18 07:34] LABS: Calprotectin, Stool 184 ug/g (0-120)
== END | disposition home or self-care (01) ==
LOC: LAB 09:22
PROVIDERS: PCP Internal Medicine; Visit Provider Surgery
DX: K51.90 Ulcerative colitis, unspecified, without complications (principal)
CPT/HCPCS: 83630; 83993; 86480; 87177; 87209; 87493; 87506

== ENCOUNTER → 2022-11-21 | Outpatient (CLI) | payer MEDICAID, SELFPAY ==
[2022-11-21 16:01] LABS: Absolute Lymphocyte Count 1.87 X10^3/uL (0.83-4.51); Absolute Neutrophil Count 6.5 X10^3/uL (2.0-7.7); Basophil# 0.04 X10^3/uL; Basophil% 0.4 % (0-1); Eosinophils% 1.1 % (0-5); Hematocrit 43.4 % (40-54); Lymphocyte # 1.87 X10^3/ul (0.83-4.51); Lymphocyte % 20.7 % (19-41); Mean Corp Hgb Conc 32.3 g/dL (32-36); Mean Corpuscular Hgb 28.4 pg (27.0-32.0); Mean Platelet Vol. 10.8 fl (6.2-12.0); Monocyte# 0.53 X10^3/uL; Monocyte% 5.9 % (0-10); NRBC Flagged by Analyzer 0 % (0-5); Neutrophil # 6.45 X10^3/uL (2.7-7.7); Neutrophil % 71.2 % (47-70); Platelet Count 272 K/mm3 (150-450); RBC Distribution Width CV 13.2 % (11.6-14.6); RBC Distribution Width SD 42.7 fl (35.1-43.9); Red Blood Count 4.93 M/mm3 (4.6-6.2); White Blood Count 9.1 K/mm3 (4.4-11.0)
[2022-11-21 16:12] LABS: Erythrocyte Sedimentation Rate 3 mm/hr (0-20)
[2022-11-21 16:20] LABS: ALB/GLOB Ratio 1.2 RATIO (0.9-2.4); AST(SGOT) 15 U/L (15-37); Alanine Aminotransfer ALT/SGPT 34 U/L (16-61); Albumin, Serum 3.8 g/dL (3.2-5.0); Alkaline Phosphatase 61 U/L (45-117); Anion Gap 4 (5-15); BUN 13 mg/dL (7-18); BUN/Creat Ratio 15.8 RATIO (10-20); CRP < 2.90 mg/L (0.0-3.0); Calcium,Total 9.1 mg/dL (8.5-10.1); Chloride 104 mmol/L (98-107); Creatinine, Serum 0.82 mg/dL (0.70-1.30); EST Glomerular Filtration Rate 103 mL/min (>60); Est Glom Filt Rate - Afr Amer 125 mL/min (>60); Globulin 3.2 g/dL (2.2-4.2); Glucose 144 mg/dL (74-106); Potassium 4.2 mmol/L (3.5-5.1); Sodium Level 139 mmol/L (136-145)
== END | disposition home or self-care (01) ==
LOC: LAB 14:59
PROVIDERS: PCP Internal Medicine; Visit Provider Nurse Practitioner Adult Health
DX: K51.90 Ulcerative colitis, unspecified, without complications (principal)
CPT/HCPCS: 36415; 80053; 85025; 85652; 86140

== ENCOUNTER → 2022-11-23 | Outpatient (CLI) | payer MEDICAID, SELFPAY ==
[2022-11-27 23:22] LABS: Calprotectin, Stool <16 ug/g (0-120)
== END | disposition home or self-care (01) ==
LOC: LABSPEC 12:13
PROVIDERS: PCP Internal Medicine; Referring Provider Nurse Practitioner Adult Health; Visit Provider Nurse Practitioner Adult Health
DX: K58.9 Irritable bowel syndrome, unspecified (principal)
CPT/HCPCS: 83630; 83993

== ENCOUNTER → 2022-12-20 | Outpatient (CLI) | payer MEDICAID, SELFPAY ==
--- NOTE | 2022-12-20 18:45 | CT_ITS ---
STUDY: CT ABDOMEN AND PELVIS WITH CONTRAST REASON FOR EXAM: Male, 52 years old. luq pain, ulcerative colitis -- oral and iv RADIATION DOSAGE (If Supplied By Facility): CTDIvol = ( 14.48 ) mGy, DLP = ( 621.35 ) mGycm TECHNIQUE: Transaxial images were obtained from the dome of the diaphragm to the symphysis pubis with oral contrast. Oral and amp; IV Gastrografin and amp; 100mL Isovue-370 was administered. Sagittal and coronal images were reconstructed. Individualized dose optimization techniques were used for this CT. COMPARISON: Comparison is made with prior study dated April 30, 2022. FINDINGS: The visualized lung bases are unremarkable. The visualized portions of the heart are within normal limits. Normal liver. Compressible tiny gallstones in the dependent portion of the gallbladder lumen. Normal spleen. Normal pancreas. Normal bilateral adrenal glands. Normal right kidney. Normal left kidney. Normal visualized stomach. Normal small intestine. Moderate amount of fecal material is seen in the colon. The appendix is visualized and appears normal. Normal abdominal aorta. Normal inferior vena cava. Normal retroperitoneum. Normal urinary bladder. There is enlargement of the prostate gland. And measures 4.2 cm x 5.9 cm. This causes indentation at the bladder base. Small bilateral inguinal hernias containing fat. Small benign-appearing bilateral inguinal lymph nodes. Normal osseous structures. CT/Abdomen/Pelvis WITH Contrast IMPRESSION: The previously seen colitis in the descending colon and rectum is not seen at this time. Questionable tiny gallstones. Prostatic enlargement with indentation at the bladder base. Electronically Signed: Lars Diaz MD at 14:09 EST ,
== END | disposition home or self-care (01) ==
LOC: CT 18:43
PROVIDERS: PCP Internal Medicine; Visit Provider Nurse Practitioner Adult Health
DX: K51.90 Ulcerative colitis, unspecified, without complications (principal); R10.9 Unspecified abdominal pain
CPT/HCPCS: 74177; Q9967

== ENCOUNTER 2023-10-13 03:57 | Emergency (ER) | payer MEDICAID, SELFPAY ==
[2023-10-13 03:58] VITALS: BP 124/77; PULSE 64; RESP 15; TEMP 36.8; O2SAT 95; BMI 27.5
--- NOTE | 2023-10-13 04:09 | EDS_ITS ---
HPI History of Present Illness HPI Narrative: 53-year-old male history of diabetes with atraumatic right shoulder pain. Prior history of this. No prior evaluation. No prior x-ray or MRI. He is right-hand dominant. He denies any injury. He denies any prior surgery. No redness or swelling. The pain is just worse recently and he wanted evaluated. Chief Complaint: Upper Extremity Injury Informant: patient Occured/Mechanism Mechanism/Context: No injury and No blunt trauma Onset/Context/Timing Onset: Month(s) Context: Gradual Onset Timing: Intermittent Quality of Pain: Dull and Aching Current Severity: Mild Maximum Severity: Mild Associated Symptoms Associated Symptoms: Negative for Parasthesia, Weakness or Loss of Funtion Narrative Narrative: [id number] 53-year-old male with acute on chronic right shoulder pain. No fever or chills. No redness or swelling. No history of trauma. No prior surgery. Prior similar symptoms: Yes Recent Illness/Hospitalization: No PFSH PFSH Medical History Diabetes Enlarged prostate Excessive bleeding Former smoker Gastric reflux Hemorrhoids History of GI bleed History of steroid therapy Leg cramps PTSD (post-traumatic stress disorder) Ulcerative colitis Home Medications sertraline 100 mg tablet 100 mg PO DAILY PTSD 05/17/18 [History Last Taken 05/16/18] terazosin 5 mg capsule 5 mg PO BID BPH 05/17/18 [History Last Taken 05/16/18] metformin 500 mg tablet 500 tab PO BID 04/30/22 [History Last Taken Unknown] multivitamin 1 tab PO DAILY 05/05/22 [History Last Taken Unknown] nicotine 21 mg/24 hr daily transdermal patch 1 patch transdermal DAILY 05/05/22 [History Last Taken Unknown] pantoprazole 40 mg tablet,delayed release 40 mg PO QAM #90 tabs 05/17/22 [Rx Last Taken Unknown] nystatin 100,000 unit/gram topical cream 1 applic topical BID #60 grams 07/06/22 [Rx Last Taken Unknown] budesonide 3 mg capsule,delayed,extended release 9 mg (3 x 3 mg) PO QAM ulcerative colitis #90 ea 08/28/22 [Rx Last Taken Unknown] glipizide 5 mg tablet mg 10/13/23 [History Last Taken Unknown] Allergy/AdvReac Type Severity Reaction Status Date / Time No Known Allergies Allergy Verified 10/13/23 03:59 Family History Father Diabetes Hypertension Kidney disease Mother Diabetes Hypertension Heart disease CVA (cerebral vascular accident) Sister Diabetes Surgical History History of tonsillectomy Social History Smoking Status: Former smoker alcohol intake: never substance use type: does not use ROS ROS ED ROS Narrative Denies recent illness. No fever. Review of Systems ROS Unobtainable: Denies due to encephalopathy Constitutional Constitutional ED: Denies chills or fever(s) Eyes Eyes: Denies blurry vision ENT ENT ED: Denies ear pain Cardiovascular Cardiovascular: Denies chest pain Respiratory/Chest Respiratory/Chest: Denies cough or dyspnea Gastrointestinal Gastrointestinal: Denies abdominal pain Genitourinary Genitourinary ED: Denies dysuria or hematuria Musculoskeletal Musculoskeletal: Denies back pain or myalgias Integumentary Denies abscess or Abrasions Neurologic Neurologic: Denies headache(s) Psychiatric Psychiatric: Denies anxiety or depression Endocrine Endocrinology: Denies cold intolerance Hematologic/Lymphatic Hematologic/Lymphatic: Denies easy bleeding, easy bruising or lymphadenopathy Allergic/Immunologic Allergic/Immunologic ED: Denies mouth swelling, tongue swelling or urticaria EXAM Physical Exam Narrative Exam Narrative: Well-appearing 53-year-old male. No acute distress. Vital signs stable afebrile. HEENT exam unremarkable. Neck nontender no lymphadenopathy. Lungs clear to auscultation. Heart regular rhythm rate about 65 no murmur. Chest wall and ribs nontender. Abdomen soft nontender. Moving all 4 extremities. Neurovascular intact. Specifically he has discomfort but can move the right shoulder. Has normal range of motion including AB and adduction. He can lift his arm over his head. His rotator cuff is intact. There is no tenderness to the right shoulder. There is no redness or warmth nor any swelling. There is no axillary lymphadenopathy. There is no bony deformity. No signs of di slocation. Distal humerus, elbow, forearm and wrist are nontender. Normal radial pulse. Normal range of motion of the wrist. 5-5 oil burner servicer and installer strength. Normal cap refill. Normal touch sensation. Otherwise exam unremarkable. Const Vital Signs: 10/13/23 03:58 Temperature 98.2 F Temperature Source Oral Pulse Rate 64 Respiratory Rate 15 Blood Pressure 124/77 H Blood Pressure Mean 92 Pulse Ox 95 Oxygen Delivery Method Room Air Positive well nourished and well developed; Negative for obese, cachectic, contractures or unkempt General Appearance ED: well developed and NAD; Negative for unkempt, cachectic, contractures, cyanotic or diaphoretic Nutritional Appearance: Negative for cachectic or obese HEENT Reports moist mucous membranes normocephalic and atraumatic; Negative for trauma or tenderness Eyes PERRL and EOMs intact bilaterally General Eye ED: Negative for other Neck full ROM and supple General: Negative for tenderness Lymph Lymphatic: Negative for other Chest Wall inspection of chest normal and palpation of chest normal Chest: Negative for other Resp normal respiratory effort and clear to auscultation bilaterally Effort and Inspection: Negative for pain with movement Auscultation: Negative for rales, rhonchi, wheezes or diminished lung sounds Cardio regular rate, regular rhythm, S1 normal heart sound, S2 normal heart sound and no murmurs Rate: Negative for bradycardia or tachycardic Rhythm: Negative for abnormal rhythm GI non-tender, non-distended and no masses Inspection: Negative for abdominal distention Auscultation: normoactive bowel sounds Palpation: soft; Negative for tender or guarding Bladder / Kidney Exam: No other Back/Spine no CVA tenderness General Back: Negative for CVA tenderness Cervical Spine: Negative for cervical spine tenderness Thoracic Spine / Upper Back: Negative for thoracic spinal tenderness Lumbar Spine / Lower Back: Negative for lumbar spinal tenderness Extremity normal to inspection and full ROM Extremity Narrative: Discomfort with range of motion of the right shoulder. Normal range of motion. Normal strength. No redness or swelling. Able to lift his arm above his head. Right hand normal strength. Normal radial pulse. Normal sensation. No reproducible pain to the right shoulder. General Extremety ED: Negative for edema or other findings General Extremity: Negative for edema or other findings Neuro oriented x3, CN's II-XII intact bilaterally, moves all extremities, no focal motor deficits and no sensory deficits noted Sensorium / Orientation: alert, oriented to person, oriented to place and oriented to time; Negative for orientation impaired, lethargic or stuporous Motor Exam: strength 5/5 throughout Psych mental status grossly normal Appearance: Negative for unkempt Attitude: No agitated Mood & Affect: Negative for depressed, anxious or tearful Skin General Skin Exam: Negative for petechiae Lesions: no lesions Rashes: no rashes Trauma: no lacerations or abrasions; Negative for abrasion, laceration or puncture MDM MDM MDM Narrative Medical decision making narrative: 53-year-old male with right shoulder pain. X-ray being obtained. Exam benign other than discomfort with movement. No signs of septic joint. I went over the x-ray with the patient's. He was very insistent that he wanted a right shoulder joint injection. I explained to him I would try anti- inflammatories and ice. He inform he had been doing that. Plus he did take care of his at home he is her primary caregiver. Patient was injected in the right shoulder with 10 cc of lidocaine and 40 mg of Kenalog. He tolerated that well. He will be discharged home. Ice. Anti-inflammatories. He wants to follow-up with Dr. Nazario Aguirre. 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 Versus chronic degenerative change. Obviously no acute fracture. No dislocation. Also some calcification in the right shoulder joint. Procedures Other Procedures Procedure(s): Right shoulder joint injection. Area cleaned multiple times with alcohol swab. Using a 10 cc syringe of lidocaine and 40 mg of Kenalog I did a lateral injection of his right shoulder. Patient tolerated well. He started getting some improvement within minutes. He was instructed on any signs of infection to return. Discharge Plan Triage Chief Complaint: Upper Extremity Injury ED Provider: Levy Martell Dx/Rx/DC Orders Clinical Impression: History of diabetes mellitus, Arthritis of right shoulder region Instructions: ED Osteoarthritis Prescriptions: No Action pantoprazole 40 mg tablet,delayed release (DR/EC) 40 mg PO QAM Qty: 90 0RF nystatin 100,000 unit/gram cream 1 applic topical BID Qty: 60 1RF Rx Instructions: apply to groin rash budesonide 3 mg capsule,delayed,extend.release 9 mg PO QAM Qty: 90 2RF terazosin 5 MG capsule 5 mg PO BID sertraline 100 MG tablet 100 mg PO DAILY Patient Comments: TAKE 1 TABLET EVERY DAY metformin 500 mg tablet 500 tab PO BID Patient Comments: TAKE 2 TABLETS BY MOUTH TWICE DAILY WITH MEALS multivitamin Tablet 1 tab PO DAILY nicotine 21 mg/24 hr patch 24 hour 1 patch transdermal DAILY Patient Comments: Apply 1 Patch as directed every 24 hours. glipizide 5 mg tablet Patient Comments: Take 1 tablet by mouth twice daily before meals. As directed Primary Care Provider: Puja Hernandez Referrals: Nazario Aguirre DO [Non-Staff] - 1-2 Weeks Puja Hernandez MD [Primary Care Provider] - Activity Restrictions/Additional Instructions: Ice to your right shoulder. Motrin for pain and swelling. Follow-up with Dr. Nazario Aguirre. Return if you develop a fever or the right shoulder becomes extremely painful and red. Disposition Disposition: Home, Self Care
--- OUTSIDE RECORDS SUMMARY | 2023-10-13 04:24 | XMS RPT_ITS | CCD ---
Author Name Unknown Address [address] [place] [address] Organization [facility] Care Team Providers Care Hand Tacker Name Role Phone Nell Hernandez MD Primary Care Provider TALAMPAS, NELL D Referring Unavailable TALAMPAS, NELL D Primary Care Unavailable TALAMPAS, NELL D Attending Unavailable TALAMPAS, NELL D Referring Unavailable TALAMPAS, NELL D Primary Care Unavailable TALAMPAS, NELL D Attending Unavailable TALAMPAS, NELL D Primary Care Unavailable TALAMPAS, NELL D Referring Unavailable TALAMPAS, NELL D Primary Care Unavailable TALAMPAS, NELL D Referring Unavailable TALAMPAS, NELL D Primary Care Unavailable TALAMPAS, NELL D Primary Care Unavailable Nell Hernandez MD Primary Care Provider Allergies Allergy Classification Reported Allergen(s) Allergy Type Date of Onset Reaction(s) Facility (14 sources) Propylamine derivative antihistamine; Translations: [ANTIHISTAMINES - ALKYLAMINE] Drug Intolerance 9 Intolerance [facility] Work Phone: Medications Current Medications Medication Drug Class(es) Dates Sig (Normalized) Sig (Original) doxycycline hyclate 100 mg oral tablet (1 source) Tetracycline-clas s Drug Start: 03-13-2023 End: 03-20-2023 take 1 tablet by mouth twice daily doxycycline (VIBRA-TABS) 100 mg tablet Take 1 tablet by mouth twice daily for 7 days. 14 tablet 0 03/13/2023 03/20/2023 Active Completed/Discontinued Medications Medication Drug Class(es) Dates Sig (Normalized) Sig (Original) [id number] 200 actuat albuterol 0.09 mg/actuat metered dose inhaler (3 sources) beta2-Adrenergic Agonist Start: 03-13-2023 take 2 puff(s) by inhalation every six hours as needed albuterol HFA (PROAIR HFA) 90 mcg/actuation inhaler Inhale 2 Puffs as instructed every 6 hours as needed. 1 Each 0 03/13/2023 Active Problems Active Problems Problem Classification Problem Date Documented Da te Episodic/Chronic Anxiety disorders (20 sources) Anxiety disorder; Translations: [Anxiety disorder, unspecified] Onset: 09-23-2015 09-23-2015 Chronic Diabetes mellitus with complications (5 sources) Type II diabetes mellitus uncontrolled; Translations: [Type 2 diabetes mellitus with hyperglycemia] Onset: 10-23-2022 Chronic Diabetes mellitus without complication (15 sources) Type 2 diabetes mellitus without complication; Translations: [Type 2 diabetes mellitus without complications] Onset: 02-27-2021 02-27-2021 Chronic Disorders of lipid metabolism (16 sources) Hypercholesterolemia ; Translations: [Pure hypercholesterolemia , unspecified] Onset: 02-27-2021 02-27-2021 Chronic Gastrointestinal hemorrhage (1 source) Rectal hemorrhage; Translations: [Hemorrhage of anus and rectum] Episodic Headache; including migraine (1 source) Acute headache; Translations: [Acute nonintractable headache, unspecified headache type] Episodic Hyperplasia of prostate (14 sources) Benign prostatic hypertrophy with outflow obstruction; Translations: [Benign prostatic hyperplasia with lower urinary tract symptoms] Onset: 02-27-2008 12-27-2017 Chronic Malaise and fatigue (3 sources) Fatigue; Translations: [Other fatigue] Onset: 04-23-2023 Episodic Other non-traumatic joint disorders (1 source) Multiple joint pain; Translations: [Pain in unspecified joint] 04-23-2023 Episodic Other non-traumatic joint disorders (1 source) Pain in unspecified joint; Translations: [Polyarthralgia] Onset: 04-23-2023 Episodic Other nutritional; endocrine; and metabolic disorders (12 sources) Obesity; Translations: [Other obesity due to excess calories] Onset: 12-27-2017 12-27-2017 Chronic Other nutritional; endocrine; and metabolic disorders (2 sources) Obesity caused by energy imbalance; Translations: [Other obesity due to excess calories] Onset: 12-27-2017 12-27-2017 Chronic Other upper respiratory infections (1 source) Chronic sinusitis; Translations: [Chronic sinusitis, unspecified] Chronic Other upper respiratory infections (1 source) Acute upper respiratory infection; Translations: [Acute upper respiratory infection, unspecified] Episodic Otitis media and related conditions (1 source) Acute suppurative otitis media without spontaneous rupture of ear drum; Translations: [Acute suppurative otitis media without spontaneous rupture of ear drum, left ear] Episodic Regional enteritis and ulcerative colitis (3 sources) Ulcerative pancolitis; 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 (chronic) pancolitis with unspecified complications] Onset: 10-23-2022 Chronic Residual codes; unclassified (1 source) Body fluid retention; Translations: [Edema, unspecified] 04-23-2023 Episodic Residual codes; unclassified (1 source) Tobacco user; Translations: [Tobacco use] 04-23-2023 Episodic Residual codes; unclassified (1 source) Edema, unspecified; Translations: [Fluid retention] Onset: 04-23-2023 Episodic Spondylosis; intervertebral disc disorders; other back problems (1 source) Neck pain; Translations: [Cervicalgia] Episodic Substance-related disorders (13 sources) Smoker; Translations: [Nicotine dependence, unspecified, uncomplicated] Onset: 02-02-2016 02-27-2021 Chronic Past or Other Problems Problem Classification Problem Date Documented Da te Episodic/Chronic Other non-traumatic joint disorders (13 sources) Pain in lower limb; Translations: [Pain in unspecified knee] Onset: 02-26-2012 02-26-2012 Episodic Other non-traumatic joint disorders (13 sources) Shoulder pain; Translations: [Pain in unspecified shoulder] Onset: 11-21-2012 11-21-2012 Episodic Residual codes; unclassified (13 sources) FH: Multiple sclerosis; Translations: [Family history of epilepsy and other diseases of the nervous system] Onset: 03-05-2017 03-05-2017 Episodic Results Test Name Value Interpretation Reference Range Facil ity Vital Signs Date Time Vital Sign Value Performing Clinician Lissette sanchez 04-23-2023 10:28-0400 Body temperature 97.59 [degF] Nell Hernandez MD Work Phone: [facility] 04-23-2023 10:28-0400 Body weight 77.11 kg Nell Hernandez MD Work Phone: [facility] 04-23-2023 10:28-0400 Diastolic blood pressure 70 mm[Hg] Nell Hernandez MD Work Phone: [facility] 04-23-2023 10:28-0400 Heart rate 59 /min Nell Hernandez MD Work Phone: [facility] 04-23-2023 10:28-0400 Respiratory rate 18 /min Nell Hernandez MD Work Phone: [facility] 04-23-2023 10:28-0400 SaO2% (BldA) [Mass fraction] 96 % Nell Hernandez MD Work Phone: [facility] 04-23-2023 10:28-0400 Systolic blood pressure 127 mm[Hg] Nell Hernandez MD Work Phone: [facility] 03-13-2023 11:46-0400 Body temperature 97.9 [degF] Ariana Athy PA-C Work Phone: [facility] 03-13-2023 11:46-0400 Body weight 78.02 kg Ariana Athy PA-C Work Phone: [facility] 03-13-2023 11:46-0400 Diastolic blood pressure 70 mm[Hg] Ariana Athy PA-C Work Phone: [facility] 03-13-2023 11:46-0400 Heart rate 70 /min Ariana Athy PA-C Work Phone: [facility] 03-13-2023 11:46-0400 Respiratory rate 16 /min Ariana Athy PA-C Work Phone: [facility] 03-13-2023 11:46-0400 SaO2% (BldA) [Mass fraction] 99 % Ariana Athy PA-C Work Phone: [facility] 03-13-2023 11:46-0400 Systolic blood pressure 110 mm[Hg] Ariana Athy PA-C Work Phone: [facility] 10-23-2022 10:56-0500 Body temperature 96.8 [degF] Nell Hernandez MD Work Phone: [facility] 10-23-2022 10:56-0500 Body weight 69.4 kg Nell Hernandez MD Work Phone: [facility] 10-23-2022 10:56-0500 Diastolic blood pressure 68 mm[Hg] Nell Hernandez MD Work Phone: [facility] 10-23-2022 10:56-0500 Heart rate 69 /min Nell Hernandez MD Work Phone: [facility] 10-23-2022 10:56-0500 Respiratory rate 18 /min Nell Hernandez MD Work Phone: [facility] 10-23-2022 10:56-0500 SaO2% (BldA) [Mass fraction] 95 % Nell Hernandez MD Work Phone: [facility] 10-23-2022 10:56-0500 Systolic blood pressure 112 mm[Hg] Nell Hernandez MD Work Phone: [facility] 10-20-2022 07:16-0500 Body temperature 97.59 [degF] Carina Marco PONY ROUGHER.SWINE NUTRITIONIST Work Phone: [facility] 10-20-2022 07:16-0500 Body weight 73.66 kg Carina Marco PONY ROUGHER.SWINE NUTRITIONIST Work Phone: [facility] 10-20-2022 07:16-0500 Diastolic blood pressure 82 mm[Hg] Carina Marco PONY ROUGHER.SWINE NUTRITIONIST Work Phone: [facility] 10-20-2022 07:16-0500 Heart rate 76 /min Carina Marco PONY ROUGHER.SWINE NUTRITIONIST Work Phone: [facility] 10-20-2022 07:16-0500 Respiratory rate 18 /min Carina Marco PONY ROUGHER.SWINE NUTRITIONIST Work Phone: [facility] 10-20-2022 07:16-0500 SaO2% (BldA) [Mass fraction] 97 % Carina Marco PONY ROUGHER.SWINE NUTRITIONIST Work Phone: [facility] 10-20-2022 07:16-0500 Systolic blood pressure 136 mm[Hg] Carina Oseguerak PONY ROUGHER.SWINE NUTRITIONIST Work Phone: [facility] 03-03-2022 10:09-0400 Body weight 78.93 kg Nell Hernandez MD Work Phone: [facility] 03-03-2022 10:09-0400 Diastolic blood pressure 84 mm[Hg] Nell Hernandez MD Work Phone: [facility] 03-03-2022 10:09-0400 Heart rate 57 /min Nell Hernandez MD Work Phone: [facility] 03-03-2022 10:09-0400 SaO2% (BldA) [Mass fraction] 97 % Nell Hernandez MD Work Phone: [facility] 03-03-2022 10:09-0400 Systolic blood pressure 136 mm[Hg] Nell Hernandez MD Work Phone: [facility] 02-10-2022 08:34-0400 Body temperature 97.5 [degF] Gertrude Cespedes PONY ROUGHER.FISHER PURSE SEINE Work Phone: [facility] 02-10-2022 08:34-0400 Body weight 79.83 kg Gertrude Cespeeds PONY ROUGHER.FISHER PUR[employer] SEINE Work Phone: [facility] 02-10-2022 08:34-0400 Diastolic blood pressure 90 mm[Hg] Gertrude Cespedes PONY ROUGHER.FISHER PUR[employer] SEINE Work Phone: [facility] 02-10-2022 08:34-0400 Heart rate 66 /min Gertrude Cespedes PONY ROUGHER.FISHER [employer] SEINE Work Phone: [facility] 02-10-2022 08:34-0400 Respiratory rate 16 /min Gertrude Cespedes PONY ROUGHER.FISHER [employer] SEINE Work Phone: [facility] 02-10-2022 08:34-0400 SaO2% (BldA) [Mass fraction] 98 % Gertrude Cespedes PONY ROUGHER.FISHER [employer] SEINE Work Phone: [facility] 02-10-2022 08:34-0400 Systolic blood pressure 140 mm[Hg] Gertrude Coy PONY ROUGHER.FISHER [employer] SEINE Work Phone: [facility] Encounters Encounter Date Encounter Type Care Provider Facility Start: 07-02-2023 Refill Nell perdomo MD Work Phone: [facility] [place] Procedures Date Procedure Procedure Detail Performing Clinician Start: 05-10-2022 Colonoscopy Nell noriega MD Work Phone: Start: 02-10-2022 Adult depression scr eening assessment Gertrude Cespedes PONY ROUGHER.FISHER [employer] SEINE Work Phone: Start: 02-01-2021 Adult depression scr eening assessment Nell Hernandez MD Work Phone: Plan of Treatment Date Care Activity Detail Author Start: 2028 Hepatitis B Vaccine (1 of 3 - Risk 3-dose series) Hepatitis B Vaccine (1 of 3 - Risk 3-dose series) [facility] Start: 05-17-2028 Urine microalbumin profile [facility] Start: 04-23-2024 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 ISELA DISEASE VISIT ANNUAL PCP TEAM CHRONIC DISEASE VISIT [facility] Start: 04-23-2024 COVID-19 VACCINE (#1) COVID-19 VACCI NE (#1) [facility] Immunizations Immunization Date Immunization Notes Care Provider Fa cility 06-19-2018 influenza virus vaccine, unspecified formulation Nell Hernandez MD Work Phone: [facility] 05-17-2018 tetanus toxoid, redu rene diphtheria toxoid, and acellular pertussis vaccine, adsorbed Nell Hernandez MD Work Phone: [facility] 02-27-2008 tetanus and diphther ia toxoids, adsorbed, preservative free, for adult use (2 Lf of tetanus toxoid and 2 Lf of diphtheria toxoid) Nell Hernandez MD Work Phone: [facility] Work Phone: Payers Date Payer Category Payer Medicaid [employer] [employer] [id number] 2018-Present [phone] [address] [place] [address] Medicaid [id number] 2018 Medicaid [id number] 2018 Medicaid [id number] Social History Date Type Detail Facility Start: 09-02-2015 End: 04-23-2023 Tobacco smoking status MOIS Smokes tobacco daily [facility] End: 10-15-1996 History of tobacco use Cigarette Smoker [facility] Start: 09-02-2015 End: 04-23-2023 Cigarettes smoked current (pack per day) - Reported 2 [facility] Work Phone: Start: 09-02-2015 End: 04-23-2023 Tobacco use and exposure Smokeless tobacco non-user [facility] Start: 02-01-2021 End: 04-23-2023 Alcohol intake Current non-drinker of alcohol (finding) [facility] Start: 02-01-2021 End: 10-20-2022 Tobacco Comment down to less to half PPD, some days none [facility] Start: 1970 Sex Assigned At Not on file C [facility] Start: 02-10-2022 End: 10-20-2022 Tobacco smoking status NHIS Ex-smoker [facility] Work Phone: End: 10-15-1996 History of tobacco use Current smoker [facility] Work Phone: Start: 01-30-2022 End: 03-03-2022 Exposure to SARS-CoV-2 (event) Not sure [facility] Work Phone: Start: 04-23-2023 Tobacco use panel [facility] Work Phone: Adult Depression Screening Assessment 0 [facility] Work Phone: Start: 04-23-2023 Tobacco Comment Quit for 8 wee ks and now 1 PPD (as of April 23, 2023) [facility] Medical Equipment Procedure Code Equipment Code Equipment Origin al Text Equipment Identifier Dates Test blood sugar (s) 2 times daily. Dx: Type 2 DM - Uncontrolled E11.65 Insulin: No Start: 08-19-2021 Clinical Notes 02-27-2008 to 07-02-2023 Telephone Encounter - Myra De La O RN - 07/02/2023 11:55 AM Nell Kaiser MD - 04/23/2023 11:04 AM Jadon Hammond PA-C - 03/13/2023 1:32 PM EDT Note Date & Type Note Facility 07-02-2023 Miscellaneous Notes Patient has been identified by name and date of : Yes, Myra De La O RN Date 07/02/2023 Time 11:56 am Patient phones for refill(s): Requested Prescriptions Pending Prescriptions Disp Refills glipiZIDE (GLUCOTROL) 5 mg tablet 60 tablet 5 Sig: Take 1 tablet by mouth twice daily before meals. As directed nicotine (NICODERM) 14 mg/24 hr 28 Patch 1 Sig: Apply 1 Patch as directed every 24 hours. No smoking with patch. Date of last office visit with pcp: 04/23/2023 Future appt: 11/05/2023 Last 2 Encounter Wt Readings: Date: Wt: 04/23/2023 77.1 kg (170 lb) 03/13/2023 78 kg (172 lb) Previous labs/tests for medication: Diabetes: Hemoglobin A1C (%) Date Value 04/23/2023 8.0 10/23/2022 8.6 02/01/2021 6.1 07/16/2020 12.5 Please advise. Thank you. Myra De La O RN documented in this encounter [facility] 04-23-2023 Note HNO ID: [id number] Author: Nell Hernandez MD Service: ? Author Type: Physician Type: Progress Notes Filed: 04/23/2023 12:41 PM Note Text: This note was created using VideoJaxriter. Subjective Edis Agarwal is a 52 year old male. Patient presents with: F/U 6 months SUBJECTIVE: Edis Agarwal is a 52 year old year old gentleman here today for 6 month follow up appointment for review of medical conditions. Feels like a whole new body. Sugars are off sometimes. Sugars up to 400. Stopped glipizide when sugars controlled. Stop metformin. Resumed glipizide. 10mg twice daily Resumes metformin 500 two twice daily at one point. Joint pain seemed to increase and got more fatigue. Then tried Salgado Milk almond milk with turmeric,olive oil, honey and cinnamon to help with colon and inflammation--did help sugars go down so stopped metformin and glipizide 5mg twice daily. Gets pain and swelling throughout his body. Eyes puffy in AM Feels tired. Very fatigued. Sugars running good in AM 130s. Today tried to drop to 5 mg twice daily today and less joint pain. Tired of adverse effects of meds. Hard time walking after sitting for a while. Bones and joints seem to be popping. Had episode of cold sweats. Still thinking about quitting smoking. Tried a few times. Knows needs to quit. Also needs to start regular exercise again. Was doing well a few months ago.Shoulder pain prevented from continuing. Noted sometimes gets right hand tremor while sitting at rest like when smoking. PAST MEDICAL HISTORY Diagnosis Date Anxiety disorder 09/23/2015 ANXIETY STATE NOS 02/27/2008 Benign prostatic hypertrophy with urinary obstruction 02/27/2008 Hypertrophy of prostate with urinary obstruction and other lower urinary tract symptoms (LUTS) Current Outpatient Medications Medication Sig benzonatate (TESSALON PERLES) 100 mg capsule Take 2 capsules by mouth three times daily as needed. albuterol HFA (PROAIR HFA) 90 mcg/actuation inhaler Inhale 2 Puffs as instructed every 6 hours as needed. nicotine (NICODERM) 14 mg/24 hr Apply 1 Patch as directed every 24 hours. No smoking with patch. sertraline (ZOLOFT) 100 mg tablet Take 1 tablet by mouth once daily. Terazosin HCl (HYTRIN) 10 mg capsule Take 2 capsules by mouth daily at bedtime. As directed (may take 1 twice daily instead of more effective) glipiZIDE (GLUCOTROL) 5 mg tablet Take 1 tablet by mouth twice daily before meals. As directed tiZANidine (ZANAFLEX) 4 mg tablet Take 1 tablet by mouth every 8 hours as needed (muscle spasms). blood sugar diagnostic (BLOOD GLUCOSE TEST) test strip Test blood sugar(s) 2 times daily. Dx: Type 2 DM - Uncontrolled E11.65 Insulin: No Lancets lancets Test blood sugar(s) 2 times daily. Dx: Type 2 DM - Uncontrolled E11.65 Insulin: No MULTIVITAMIN TAB Take one(1) tablet daily. guaiFENesin (MUCINEX) 600 mg 12 hr tablet Take 2 tablets by mouth twice daily. (Patient not taking: Reported on 03/13/2023) metFORMIN (GLUCOPHAGE) 500 mg tablet Take 2 tablets by mouth twice daily with meals. . (Patient not taking: Reported on 04/23/2023) No current facility-administered medications for this visit. Review of Systems Objective BP 127/70 Pulse (!) 59 Temp 36.4 ?C (97.6 ?F) Resp 18 Wt 77.1 kg (170 lb) SpO2 96% BMI 33.20 kg/m? Last 5 Encounter Wt Readings: Date: Wt: 04/23/2023 77.1 kg (170 lb) 03/13/2023 78 kg (172 lb) 10/23/2022 69.4 kg (153 lb) 10/20/2022 73.7 kg (162 lb 6.4 oz) 03/03/2022 78.9 kg (174 lb) No waist measurement recorded Estimated body mass index is 33.2 kg/m? as calculated from the following: Height as of 06/20/16: 152.4 cm (5'). Weight as of this encounter: 77.1 kg (170 lb). Last 5 Encounter BP Readings: Date: BP: 04/23/2023 127/70 03/13/2023 110/70 10/23/2022 112/68 10/20/2022 136/82 03/03/2022 136/84 Physical Exam Vitals reviewed. Constitutional: Appearance: Normal appearance. Eyes: Conjunctiva/sclera: Conjunctivae normal. Cardiovascular: Rate and Rhythm: Normal rate and regular rhythm. Heart sounds: Normal heart sounds. Pulmonary: Effort: Pulmonary effort is normal. Breath sounds: Normal breath sounds. Musculoskeletal: General: No swelling or tenderness. Right hand: No swelling or deformity. Left hand: No swelling or deformity. Right lower leg: No edema. Left lower leg: No edema. Skin: General: Skin is warm and dry. Neurological: General: No focal deficit present. Mental Status: He is alert and oriented to person, place, and time. Psychiatric: Mood and Affect: Mood normal. Behavior: Behavior normal. Thought Content: Thought content normal. Judgment: Judgment normal. Labs ordered to do on way out Hemoglobin A1C (%) Date Value 10/23/2022 8.6 03/03/2022 6.0 02/01/2021 6.1 07/16/2020 12.5 03/18/2019 5.8 09/20/2015 5.2 04/20/2015 5.9 Assessment and Plan Encounter Diagnosis ICD-10-CM 1. Uncontr (more content not included)... [facility] 04-23-2023 History of Present illness Narrative This note was created using HistoSonicster. Subjective Edis Agarwal is a 52 year old male. Patient presents with: F/U 6 months SUBJECTIVE: Edis Agarwal is a 52 year old year old gentleman here today for 6 month follow up appointment for review of medical conditions. Feels like a whole new body. Sugars are off sometimes. Sugars up to 400. Stopped glipizide when sugars controlled. Stop metformin. Resumed glipizide. 10mg twice daily Resumes metformin 500 two twice daily at one point. Joint pain seemed to increase and got more fatigue. Then tried Salgado Milk almond milk with turmeric,olive oil, honey and cinnamon to help with colon and inflammation--did help sugars go down so stopped metformin and glipizide 5mg twice daily. Gets pain and swelling throughout his body. Eyes puffy in AM Feels tired. Very fatigued. Sugars running good in AM 130s. Today tried to drop to 5 mg twice daily today and less joint pain. Tired of adverse effects of meds. Hard time walking after sitting for a while. Bones and joints seem to be popping. Had episode of cold sweats. Still thinking about quitting smoking. Tried a few times. Knows needs to quit. Also needs to start regular exercise again. Was doing well a few months ago.Shoulder pain prevented from continuing. Noted sometimes gets right hand tremor while sitting at rest like when smoking. PAST MEDICAL HISTORY Diagnosis Date Anxiety disorder 09/23/2015 ANXIETY STATE NOS 02/27/2008 Benign prostatic hypertrophy with urinary obstruction 02/27/2008 Hypertrophy of prostate with urinary obstruction and other lower urinary tract symptoms (LUTS) Current Outpatient Medications Medication Sig benzonatate (TESSALON PERLES) 100 mg capsule Take 2 capsules by mouth three times daily as needed. albuterol HFA (PROAIR HFA) 90 mcg/actuation inhaler Inhale 2 Puffs as instructed every 6 hours as needed. nicotine (NICODERM) 14 mg/24 hr Apply 1 Patch as directed every 24 hours. No smoking with patch. sertraline (ZOLOFT) 100 mg tablet Take 1 tablet by mouth once daily. Terazosin HCl (HYTRIN) 10 mg capsule Take 2 capsules by mouth daily at bedtime. As directed (may take 1 twice daily instead of more effective) glipiZIDE (GLUCOTROL) 5 mg tablet Take 1 tablet by mouth twice daily before meals. As directed tiZANidine (ZANAFLEX) 4 mg tablet Take 1 tablet by mouth every 8 hours as needed (muscle spasms). blood sugar diagnostic (BLOOD GLUCOSE TEST) test strip Test blood sugar(s) 2 times daily. Dx: Type 2 DM - Uncontrolled E11.65 Insulin: No Lancets lancets Test blood sugar(s) 2 times daily. Dx: Type 2 DM - Uncontrolled E11.65 Insulin: No MULTIVITAMIN TAB Take one(1) tablet daily. guaiFENesin (MUCINEX) 600 mg 12 hr tablet Take 2 tablets by mouth twice daily. (Patient not taking: Reported on 03/13/2023) metFORMIN (GLUCOPHAGE) 500 mg tablet Take 2 tablets by mouth twice daily with meals. . (Patient not taking: Reported on 04/23/2023) No current facility-administered medications for this visit. Review of Systems Objective BP 127/70 Pulse (!) 59 Temp 36.4 C (97.6 F) Resp 18 Wt 77.1 kg (170 lb) SpO2 96% BMI 33.20 kg/m Last 5 Encounter Wt Readings: Date: Wt: 04/23/2023 77.1 kg (170 lb) 03/13/2023 78 kg (172 lb) 10/23/2022 69.4 kg (153 lb) 10/20/2022 73.7 kg (162 lb 6.4 oz) 03/03/2022 78.9 kg (174 lb) No waist measurement recorded Estimated body mass index is 33.2 kg/m as calculated from the following: Height as of 06/20/16: 152.4 cm (5'). Weight as of this encounter: 77.1 kg (170 lb). Last 5 Encounter BP Readings: Date: BP: 04/23/2023 127/70 03/13/2023 110/70 10/23/2022 112/68 10/20/2022 136/82 03/03/2022 136/84 Physical Exam Vitals reviewed. Constitutional: Appearance: Normal appearance. Eyes: Conjunctiva/sclera: Conjunctivae normal. Cardiovascular: Rate and Rhythm: Normal rate and regular rhythm. Heart sounds: Normal heart sounds. Pulmonary: Effort: Pulmonary effort is normal. Breath sounds: Normal breath sounds. Musculoskeletal: General: No swelling or tenderness. Right hand: No swelling or deformity. Left hand: No swelling or deformity. Right lower leg: No edema. Left lower leg: No edema. Skin: General: Skin is warm and dry. Neurological: General: No focal deficit present. Mental Status: He is alert and oriented to person, place, and time. Psychiatric: Mood and Affect: Mood normal. Behavior: Behavior normal. Thought Content: Thought content normal. Judgment: Judgment normal. Labs ordered to do on way out Hemoglobin A1C (%) Date Value 10/23/2022 8.6 03/03/2022 6.0 02/01/2021 6.1 07/16/2020 12.5 03/18/2019 5.8 09/20/2015 5.2 04/20/2015 5.9 Assessment and Plan Encounter Diagnosis ICD-10-CM 1. Uncontrolled type 2 diabetes mellitus with hyperglycemia (HCC) E11.65 COMP METABOLIC PANEL CBC HGB A1C MAGNESIUM BLD SED RATE WESTERGREN C-REACTIVE PROTEIN (CRP) Has had sugars up to 400s last month; down to 130s now. Update labs. Adjust meds as discussed.See if tolerates metformin XR and can stop glipizide 2. Fatigue, unspecified type R53.83 COMP METABOLIC PANEL CBC HGB A1C MAGNESIUM BLD SED RATE WESTERGREN C-REACTIVE PROTEIN (CRP) T4 FREE/FREE THYROX T3 FREE BLD TSH BLD 3. Fluid retention R60.9 COMP METABOLIC PANEL CBC HGB A1C MAGNESIUM BLD SED RATE WESTERGREN C-REACTIVE PROTEIN (CRP) T4 FREE/FREE THYROX T3 FREE BLD TSH BLD Noted generalized swelling that improved with stopping metformin and decreasing glipizide. 4. Polyarthralgia M25.50 COMP METABOLIC PANEL CBC HGB A1C MAGNESIUM BLD SED RATE WESTERGREN C-REACTIVE PROTEIN (CRP) T4 FREE/FREE THYROX T3 FREE BLD TSH BLD RHEUMATOID FACTOR BL ERICH BY IFA SCREEN 5. Hypercholesteremia E78.00 LIPID PANEL, NONFASTING 6. Ulcerative pancolitis with complication (HCC) K51.019 Fair control now. Salgado milk helping. Not following with GI on meds at this time.Refer back to GI as indicated 7. Tobacco abuse Z72.0 Working on quitting smoking again Above issues addressed with patient. Patient involved in shared decision making for management of medical issues. History and medications reviewed. Epic updated as needed Refills and/or prescriptions taken care of and meds adjusted as indicated after reviewed history, exam and labs. Health Maintenance reviewed. Updated record and/or ordered tests as recorded. Encouraged on efforts at healthy diet and regular exercise and adequate sleep. Discussed management of above issues. Refer back to GI as needed. Would refer to Rheumatology as needed. Nell Hernandez MD documented in this encounter [facility] 03-13-2023 Note HNO ID: [id number] Author: Ariana Hammond PA-C Service: ? Author Type: Physician Administrative Aide Type: Progress Notes Filed: 03/13/2023 1:35 PM Note Text: This note was created using [employer]. Subjective Edis Agarwal is a 52 year old male. HPI Patient presents with a chief complaint of head congestion, chest congestion and cough for 2 weeks. No fever. His and son are sick with similar symptoms. No vomiting or diarrhea. He is a smoker. Denies history of asthma or COPD. He is diabetic. Also has a history of colitis. No OTC meds used. Cough is productive. Review of Systems HENT: Positive for congestion, rhinorrhea, sinus pressure and sinus pain. Negative for ear pain and sore throat. Respiratory: Positive for cough and chest tightness. Negative for shortness of breath and wheezing. Cardiovascular: Negative. Gastrointestinal: Negative for diarrhea and nausea. Genitourinary: Negative. Musculoskeletal: Negative. All other systems reviewed and are negative. PAST MEDICAL HISTORY Diagnosis Date Anxiety disorder 09/23/2015 ANXIETY STATE NOS 02/27/2008 Benign prostatic hypertrophy with urinary obstruction 02/27/2008 Hypertrophy of prostate with urinary obstruction and other lower urinary tract symptoms (LUTS) Current Outpatient Medications Medication Sig Dispense Refill nystatin (MYCOSTATIN) cream Apply to affected area twice daily for 7 days. 30 g 0 nicotine (NICODERM) 14 mg/24 hr Apply 1 Patch as directed every 24 hours. No smoking with patch. 28 Patch 1 sertraline (ZOLOFT) 100 mg tablet Take 1 tablet by mouth once daily. 90 tablet 3 Terazosin HCl (HYTRIN) 10 mg capsule Take 2 capsules by mouth daily at bedtime. As directed (may take 1 twice daily instead of more effective) 180 capsule 3 glipiZIDE (GLUCOTROL) 5 mg tablet Take 1 tablet by mouth twice daily before meals. As directed 60 tablet 5 metFORMIN (GLUCOPHAGE) 500 mg tablet Take 2 tablets by mouth twice daily with meals. . 120 tablet 5 blood sugar diagnostic (BLOOD GLUCOSE TEST) test strip Test blood sugar(s) 2 times daily. Dx: Type 2 DM - Uncontrolled E11.65 Insulin: No 100 Strip 11 Lancets lancets Test blood sugar(s) 2 times daily. Dx: Type 2 DM - Uncontrolled E11.65 Insulin: No 100 Each 11 MULTIVITAMIN TAB Take one(1) tablet daily. 0 predniSONE (DELTASONE) 20 mg tablet Take 2 tablets by mouth once daily for 5 days. 10 tablet 0 benzonatate (TESSALON PERLES) 100 mg capsule Take 2 capsules by mouth three times daily as needed. 30 capsule 0 doxycycline (VIBRA-TABS) 100 mg tablet Take 1 tablet by mouth twice daily for 7 days. 14 tablet 0 albuterol HFA (PROAIR HFA) 90 mcg/actuation inhaler Inhale 2 Puffs as instructed every 6 hours as needed. 1 Each 0 guaiFENesin (MUCINEX) 600 mg 12 hr tablet Take 2 tablets by mouth twice daily. (Patient not taking: Reported on 03/13/2023) 24 tablet 0 tiZANidine (ZANAFLEX) 4 mg tablet Take 1 tablet by mouth every 8 hours as needed (muscle spasms). (Patient not taking: Reported on 10/23/2022) 30 tablet 0 No current facility-administered medications for this visit. PAST SURGICAL HISTORY Procedure Laterality Date TONSILLECTOMY AND ADENOIDECTOMY AGE 10/> 1992 T/A (over age 10 years) FAMILY HISTORY Problem Relation Age of Onset Diabetes Mother age 60 in 2011 Hypertension Mother Stroke Mother Diabetes Father age 74 in 2011 Kidney Disease Father dialysis Hypertension Father Social History Tobacco Use Smoking status: Former Packs/day: 2.00 Years: 15.00 Pack years: 30.00 Types: Cigarettes Quit date: 10/15/1996 Years since quittin.4 Smokeless tobacco: Never Tobacco comments: down to less to half PPD, some days none Substance Use Topics Alcohol use: No Drug use: No Types: Marijuana Comment: none since teens Objective BP 110/70 Pulse 70 Temp 36.6 ?C (97.9 ?F) Resp 16 Wt 78 kg (172 lb) SpO2 99% BMI 33.59 kg/m? Physical Exam Vitals reviewed. Constitutional: Appearance: Normal appearance. HENT: Head: Normocephalic and atraumatic. Right Ear: Tympanic membrane, ear canal and external ear normal. Left Ear: Tympanic membrane, ear canal and external ear normal. Nose: Congestion present. Right Sinus: Maxillary sinus tenderness present. Left Sinus: Maxillary sinus tenderness present. Mouth/Throat: Mouth: Mucous membranes are moist. Pharynx: Oropharynx is clear. Cardiovascular: Rate and Rhythm: Normal rate and regular rhythm. Heart sounds: Normal heart sounds. Pulmonary: Effort: Pulmonary effort is normal. Breath sounds: Normal breath sounds. Musculoskeletal: Cervical back: Neck supple. Lymphadenopathy: Cervical: Cervical adenopathy present. Skin: General: Skin is warm and dry. Neurological: Mental Status: He is alert. Assessment and Plan ASSESSMENT/PLAN: 1. Sinobronchitis - ICD9: 473.9, 490, ICD10: J32.9, J40 - Will begin treatment with Doxycycline - Supportive care with plen (more content not included)... [facility] 03-13-2023 History of Present illness Narrative This note was created using [employer]. Subjective Edis Agarwal is a 52 year old male. HPI Patient presents with a chief complaint of head congestion, chest congestion and cough for 2 weeks. No fever. His and son are sick with similar symptoms. No vomiting or diarrhea. He is a smoker. Denies history of asthma or COPD. He is diabetic. Also has a history of colitis. No OTC meds used. Cough is productive. Review of Systems HENT: Positive for congestion, rhinorrhea, sinus pressure and sinus pain. Negative for ear pain and sore throat. Respiratory: Positive for cough and chest tightness. Negative for shortness of breath and wheezing. Cardiovascular: Negative. Gastrointestinal: Negative for diarrhea and nausea. Genitourinary: Negative. Musculoskeletal: Negative. All other systems reviewed and are negative. PAST MEDICAL HISTORY Diagnosis Date Anxiety disorder 09/23/2015 ANXIETY STATE NOS 02/27/2008 Benign prostatic hypertrophy with urinary obstruction 02/27/2008 Hypertrophy of prostate with urinary obstruction and other lower urinary tract symptoms (LUTS) Current Outpatient Medications Medication Sig Dispense Refill nystatin (MYCOSTATIN) cream Apply to affected area twice daily for 7 days. 30 g 0 nicotine (NICODERM) 14 mg/24 hr Apply 1 Patch as directed every 24 hours. No smoking with patch. 28 Patch 1 sertraline (ZOLOFT) 100 mg tablet Take 1 tablet by mouth once daily. 90 tablet 3 Terazosin HCl (HYTRIN) 10 mg capsule Take 2 capsules by mouth daily at bedtime. As directed (may take 1 twice daily instead of more effective) 180 capsule 3 glipiZIDE (GLUCOTROL) 5 mg tablet Take 1 tablet by mouth twice daily before meals. As directed 60 tablet 5 metFORMIN (GLUCOPHAGE) 500 mg tablet Take 2 tablets by mouth twice daily with meals. . 120 tablet 5 blood sugar diagnostic (BLOOD GLUCOSE TEST) test strip Test blood sugar(s) 2 times daily. Dx: Type 2 DM - Uncontrolled E11.65 Insulin: No 100 Strip 11 Lancets lancets Test blood sugar(s) 2 times daily. Dx: Type 2 DM - Uncontrolled E11.65 Insulin: No 100 Each 11 MULTIVITAMIN TAB Take one(1) tablet daily. 0 predniSONE (DELTASONE) 20 mg tablet Take 2 tablets by mouth once daily for 5 days. 10 tablet 0 benzonatate (TESSALON PERLES) 100 mg capsule Take 2 capsules by mouth three times daily as needed. 30 capsule 0 doxycycline (VIBRA-TABS) 100 mg tablet Take 1 tablet by mouth twice daily for 7 days. 14 tablet 0 albuterol HFA (PROAIR HFA) 90 mcg/actuation inhaler Inhale 2 Puffs as instructed every 6 hours as needed. 1 Each 0 guaiFENesin (MUCINEX) 600 mg 12 hr tablet Take 2 tablets by mouth twice daily. (Patient not taking: Reported on 03/13/2023) 24 tablet 0 tiZANidine (ZANAFLEX) 4 mg tablet Take 1 tablet by mouth every 8 hours as needed (muscle spasms). (Patient not taking: Reported on 10/23/2022) 30 tablet 0 No current facility-administered medications for this visit. PAST SURGICAL HISTORY Procedure Laterality Date TONSILLECTOMY & ADENOIDECTOMY AGE 10/> 1992 T/A (over age 10 years) FAMILY HISTORY Problem Relation Age of Onset Diabetes Mother age 60 in 2010 Hypertension Mother Stroke Mother Diabetes Father age 74 in 2010 Kidney Disease Father dialysis Hypertension Father Social History Tobacco Use Smoking status: Former Packs/day: 2.00 Years: 15.00 Pack years: 30.00 Types: Cigarettes Quit date: 10/15/1996 Years since quittin.4 Smokeless tobacco: Never Tobacco comments: down to less to half PPD, some days none Substance Use Topics Alcohol use: No Drug use: No Types: Marijuana Comment: none since teens Objective BP 110/70 Pulse 70 Temp 36.6 C (97.9 F) Resp 16 Wt 78 kg (172 lb) SpO2 99% BMI 33.59 kg/m Physical Exam Vitals reviewed. Constitutional: Appearance: Normal appearance. HENT: Head: Normocephalic and atraumatic. Right Ear: Tympanic membrane, ear canal and external ear normal. Left Ear: Tympanic membrane, ear canal and external ear normal. Nose: Congestion present. Right Sinus: Maxillary sinus tenderness present. Left Sinus: Maxillary sinus tenderness present. Mouth/Throat: Mouth: Mucous membranes are moist. Pharynx: Oropharynx is clear. Cardiovascular: Rate and Rhythm: Normal rate and regular rhythm. Heart sounds: Normal heart sounds. Pulmonary: Effort: Pulmonary effort is normal. Breath sounds: Normal breath sounds. Musculoskeletal: Cervical back: Neck supple. Lymphadenopathy: Cervical: Cervical adenopathy present. Skin: General: Skin is warm and dry. Neurological: Mental Status: He is alert. Assessment and Plan ASSESSMENT/PLAN: 1. Sinobronchitis - ICD9: 473.9, 490, ICD10: J32.9, J40 - Will begin treatment with Doxycycline - Supportive care with plenty of fluids, rest, and analgesia prn. - Follow up in 3-5 days if symptoms persist or worsen. Ariana Hammond PA-C documented in this encounter [facility] 10-27-2022 Miscellaneous Notes Updated Spoke with patient and he has been on glipizide 5 mg daily and has not increased as of this time to 5 mg twice daily. So instead of doing 10 mg twice daily he is just going to do the 5 mg twice daily and recheck labs in 3 months. Can you please update his medication accordingly? Likely the steroid contributed to the increase. If issues with sugars getting to 70 or below with the change in dose of medication and being off of the steroids then please let us know but otherwise go ahead with the increase and okay to do 3 month as just a lab check on the hgba1c. Order signed. Pts called and is notified of providers results and instructions. She voices understanding. She states Pt pretty compliant with his diabetic diet and medication. She reports the GI provider had diagnosed him with ulcerative colitis and he had been placed on steroids in May, he has been off of them for about [address] They told Dr Hernandez at his last appointment. Did you just want Pt to get A1C checked or OV as well. Please call and advise. Hilary Lee RN Please call patient and let him know labs overall stable except his hgba1c increased significantly, it increased from 6.0% to 8.6%, has he been following a diabetic diet and compliant with his medications? I would recommend increasing his glipizide (glucotrol) to 10 mg twice daily from the 5 mg twice daily he is currently taking. Will send a new script. Recommend follow up in 3 months for repeat hgba1c. Most recent HbA1c tests were: Lab Results Component Value Date HBA1C 8.6 (H) 10/23/2022 HBA1C 6.0 (H) 03/03/2022 HBA1C 6.1 (H) 02/01/2021 ([facility]) calls to check on status of lab results completed on 10/23/2021. Lab results all WNL except A1C of 8.6. Please review and advise, Myra De La O RN documented in this encounter [facility] 10-23-2022 Note HNO ID: [id number] Author: Nell Hernandez MD Service: ? Author Type: Physician Type: Progress Notes Filed: 11/16/2022 11:01 PM Note Text: This note was created using [employer]. Subjective Edis Agarwal is a 52 year old male. Patient presents with: F/U 6 months SUBJECTIVE: Edis Agarwal is a 52 year old year old gentleman here today for 6 month follow up appointment for review of medical conditions. Reviewed [facility] evaluation. Could hear heart beating (sounds like rushing) in ears when things really quiet. Noted had ear infection--symptoms worse on left side that had the purulent drainage. Ear pain better. Sleeping okay. Tolerating antibiotic well. Noted UC diagnosis. Following with Nguyen Toledo at [facility]. Trying natural route for UC. Things helping clinically. Declined Stellara. Taking Budesonide 3 mg once daily. Steroid had helped but stopped. Swelling/bloating no. Since off prednisone, getting some tremor and fingers curl in a little--worse on right. Comes and goes. Sugars were up to 500s when on prednisone but did not contact us. Did resume metformin with his glipizide and sugars a little better but still high. Developed candidal infection on legs. Resolved but needs refill to have on hand. Taking metformin 3 per day. Thinks contributing to constipation. Needs follow up with Dr. Childers. Has been a while since last seen. PAST MEDICAL HISTORY Diagnosis Date Anxiety disorder 09/23/2015 ANXIETY STATE NOS 02/27/2008 Benign prostatic hypertrophy with urinary obstruction 02/27/2008 Hypertrophy of prostate with urinary obstruction and other lower urinary tract symptoms (LUTS) Current Outpatient Medications Medication Sig amoxicillin (AMOXIL) 875 mg tablet Take 1 tablet by mouth twice daily for 7 days. guaiFENesin (MUCINEX) 600 mg 12 hr tablet Take 2 tablets by mouth twice daily. nystatin (MYCOSTATIN) cream Apply to affected area twice daily. glipiZIDE (GLUCOTROL) 5 mg tablet Take 1 tablet by mouth once daily. Terazosin HCl (HYTRIN) 10 mg capsule Take 1-2 capsules by mouth daily at bedtime. As directed (may take 1 twice daily instead of more effective) sertraline (ZOLOFT) 100 mg tablet Take 1 tablet by mouth once daily. metFORMIN (GLUCOPHAGE) 500 mg tablet Take 2 tablets by mouth twice daily with meals. . nicotine (NICODERM) 14 mg/24 hr Apply 1 Patch as directed every 24 hours. No smoking with patch. blood sugar diagnostic (BLOOD GLUCOSE TEST) test strip Test blood sugar(s) 2 times daily. Dx: Type 2 DM - Uncontrolled E11.65 Insulin: No Lancets lancets Test blood sugar(s) 2 times daily. Dx: Type 2 DM - Uncontrolled E11.65 Insulin: No MULTIVITAMIN TAB Take one(1) tablet daily. tiZANidine (ZANAFLEX) 4 mg tablet Take 1 tablet by mouth every 8 hours as needed (muscle spasms). (Patient not taking: Reported on 10/23/2022) No current facility-administered medications for this visit. Review of Systems Constitutional: Positive for fatigue. Gastrointestinal: Positive for constipation and diarrhea (Not too much). Negative for blood in stool. Endocrine: Positive for polydipsia (Excess thirst) and polyuria. Objective BP 112/68 Pulse 69 Temp 36 ?C (96.8 ?F) Resp 18 Wt 69.4 kg (153 lb) SpO2 95% BMI 29.88 kg/m? Physical Exam Vitals reviewed. Constitutional: Appearance: Normal appearance. Eyes: Conjunctiva/sclera: Conjunctivae normal. Cardiovascular: Rate and Rhythm: Normal rate and regular rhythm. Heart sounds: Normal heart sounds. Pulmonary: Effort: Pulmonary effort is normal. Breath sounds: Normal breath sounds. Skin: General: Skin is warm and dry. Neurological: General: No focal deficit present. Mental Status: He is alert and oriented to person, place, and time. Psychiatric: Mood and Affect: Mood normal. Behavior: Behavior normal. Thought Content: Thought content normal. Judgment: Judgment normal. Hemoglobin A1C (%) Date Value 03/03/2022 6.0 02/01/2021 6.1 07/16/2020 12.5 03/18/2019 5.8 09/20/2015 5.2 04/20/2015 5.9 Assessment and Plan Encounter Diagnosis ICD-10-CM 1. Controlled type 2 diabetes mellitus with hyperglycemia, without long-term current use of insulin (HCC) E11.65 COMP METABOLIC PANEL CBC HGB A1C ALBUMIN/CREAT RATIO RND UR 2. Ulcerative pancolitis with complication (HCC) K51.019 COMP METABOLIC PANEL CBC C-REACTIVE PROTEIN (CRP) SED RATE WESTERGREN CONSULT TO GASTROENTEROLOGY Above issues addressed with patient. Patient involved in shared decision making for management of medical issues. History and medications reviewed. Epic updated as needed Refills and/or prescriptions taken care of and meds adjusted as indicated after reviewed history, exam and labs. Health Maintenance reviewed. Updated record and/or ordered tests as recorded. Encouraged on efforts at healthy diet and regular exercise and adequate sleep. Nell Hernandez MD [facility] 10-23-2022 History of Present illness Narrative This note was created using [employer]. Subjective Edis Agarwal is a 52 year old male. Patient presents with: F/U 6 months SUBJECTIVE: Edis Agarwal is a 52 year old year old gentleman here today for 6 month follow up appointment for review of medical conditions. Reviewed [facility] evaluation. Could hear heart beating (sounds like rushing) in ears when things really quiet. Noted had ear infection--symptoms worse on left side that had the purulent drainage. Ear pain better. Sleeping okay. Tolerating antibiotic well. Noted UC diagnosis. Following with Nguyen Toledo at [facility]. Trying natural route for UC. Things helping clinically. Declined Stellara. Taking Budesonide 3 mg once daily. Steroid had helped but stopped. Swelling/bloating no. Since off prednisone, getting some tremor and fingers curl in a little--worse on right. Comes and goes. Sugars were up to 500s when on prednisone but did not contact us. Did resume metformin with his glipizide and sugars a little better but still high. Developed candidal infection on legs. Resolved but needs refill to have on hand. Taking metformin 3 per day. Thinks contributing to constipation. Needs follow up with Dr. Childers. Has been a while since last seen. PAST MEDICAL HISTORY Diagnosis Date Anxiety disorder 09/23/2015 ANXIETY STATE NOS 02/27/2008 Benign prostatic hypertrophy with urinary obstruction 02/27/2008 Hypertrophy of prostate with urinary obstruction and other lower urinary tract symptoms (LUTS) Current Outpatient Medications Medication Sig amoxicillin (AMOXIL) 875 mg tablet Take 1 tablet by mouth twice daily for 7 days. guaiFENesin (MUCINEX) 600 mg 12 hr tablet Take 2 tablets by mouth twice daily. nystatin (MYCOSTATIN) cream Apply to affected area twice daily. glipiZIDE (GLUCOTROL) 5 mg tablet Take 1 tablet by mouth once daily. Terazosin HCl (HYTRIN) 10 mg capsule Take 1-2 capsules by mouth daily at bedtime. As directed (may take 1 twice daily instead of more effective) sertraline (ZOLOFT) 100 mg tablet Take 1 tablet by mouth once daily. metFORMIN (GLUCOPHAGE) 500 mg tablet Take 2 tablets by mouth twice daily with meals. . nicotine (NICODERM) 14 mg/24 hr Apply 1 Patch as directed every 24 hours. No smoking with patch. blood sugar diagnostic (BLOOD GLUCOSE TEST) test strip Test blood sugar(s) 2 times daily. Dx: Type 2 DM - Uncontrolled E11.65 Insulin: No Lancets lancets Test blood sugar(s) 2 times daily. Dx: Type 2 DM - Uncontrolled E11.65 Insulin: No MULTIVITAMIN TAB Take one(1) tablet daily. tiZANidine (ZANAFLEX) 4 mg tablet Take 1 tablet by mouth every 8 hours as needed (muscle spasms). (Patient not taking: Reported on 10/23/2022) No current facility-administered medications for this visit. Review of Systems Constitutional: Positive for fatigue. Gastrointestinal: Positive for constipation and diarrhea (Not too much). Negative for blood in stool. Endocrine: Positive for polydipsia (Excess thirst) and polyuria. Objective BP 112/68 Pulse 69 Temp 36 C (96.8 F) Resp 18 Wt 69.4 kg (153 lb) SpO2 95% BMI 29.88 kg/m Physical Exam Vitals reviewed. Constitutional: Appearance: Normal appearance. Eyes: Conjunctiva/sclera: Conjunctivae normal. Cardiovascular: Rate and Rhythm: Normal rate and regular rhythm. Heart sounds: Normal heart sounds. Pulmonary: Effort: Pulmonary effort is normal. Breath sounds: Normal breath sounds. Skin: General: Skin is warm and dry. Neurological: General: No focal deficit present. Mental Status: He is alert and oriented to person, place, and time. Psychiatric: Mood and Affect: Mood normal. Behavior: Behavior normal. Thought Content: Thought content normal. Judgment: Judgment normal. Hemoglobin A1C (%) Date Value 03/03/2022 6.0 02/01/2021 6.1 07/16/2020 12.5 03/18/2019 5.8 09/20/2015 5.2 04/20/2015 5.9 Assessment and Plan Encounter Diagnosis ICD-10-CM 1. Controlled type 2 diabetes mellitus with hyperglycemia, without long-term current use of insulin ([facility]) E11.65 COMP METABOLIC PANEL CBC HGB A1C ALBUMIN/CREAT RATIO RND UR 2. Ulcerative pancolitis with complication ([facility]) K51.019 COMP METABOLIC PANEL CBC C-REACTIVE PROTEIN (CRP) SED RATE WESTERGREN CONSULT TO GASTROENTEROLOGY Above issues addressed with patient. Patient involved in shared decision making for management of medical issues. History and medications reviewed. Epic updated as needed Refills and/or prescriptions taken care of and meds adjusted as indicated after reviewed history, exam and labs. Health Maintenance reviewed. Updated record and/or ordered tests as recorded. Encouraged on efforts at healthy diet and regular exercise and adequate sleep. Nell Hernandez MD documented in this encounter [facility] 10-20-2022 Note HNO ID: [id number] Author: Carina Lara APRN.SWINE NUTRITIONIST Service: ? Author Type: Nurse Practitioner Type: Progress Notes Filed: 10/20/2022 7:29 AM Note Text: Subjective The history is provided by the patient. No international logistics manager was used. HPI Edis Agarwal is a 52 year old male who presents today for CC of left ear pain that started in past 24 hours. He is also having nasal congestion and sinus pressure for 3 days. He has used tylenol with short term relief. Denies any known exposure to covid/flu, declines testing. BP 136/82 Pulse 76 Temp 36.4 ?C (97.6 ?F) Resp 18 Wt 73.7 kg (162 lb 6.4 oz) SpO2 97% BMI 31.72 kg/m? Social History Tobacco Use Smoking status: Former Packs/day: 2.00 Years: 15.00 Pack years: 30.00 Types: Cigarettes Quit date: 10/15/1996 Years since quittin.0 Smokeless tobacco: Never Tobacco comments: down to less to half PPD, some days none Substance Use Topics Alcohol use: No Drug use: No Types: Marijuana Comment: none since teens PAST MEDICAL HISTORY Diagnosis Date Anxiety disorder 09/23/2015 ANXIETY STATE NOS 02/27/2008 Benign prostatic hypertrophy with urinary obstruction 02/27/2008 Hypertrophy of prostate with urinary obstruction and other lower urinary tract symptoms (LUTS) I have confirmed and edited as necessary, the [facility] Review of Systems Constitutional: Negative for chills, fever and malaise/fatigue. HENT: Positive for congestion, ear pain (left) and sinus pain. Negative for sore throat. Respiratory: Negative for cough, sputum production, shortness of breath and wheezing. Cardiovascular: Negative for chest pain. Gastrointestinal: Negative for abdominal pain, diarrhea, nausea and vomiting. Musculoskeletal: Negative for myalgias. Neurological: Negative for headaches. Objective Physical Exam Vitals and nursing note reviewed. Constitutional: Appearance: He is not toxic-appearing. HENT: Head: Normocephalic and atraumatic. Right Ear: Ear canal and external ear normal. A middle ear effusion (serous) is present. Tympanic membrane is bulging. Left Ear: Ear canal and external ear normal. A middle ear effusion (purulent) is present. Tympanic membrane is injected, erythematous and bulging. Nose: No mucosal edema, congestion or rhinorrhea. Right Sinus: No maxillary sinus tenderness or frontal sinus tenderness. Left Sinus: No maxillary sinus tenderness or frontal sinus tenderness. Mouth/Throat: Pharynx: Uvula midline. No oropharyngeal exudate or posterior oropharyngeal erythema. Tonsils: No tonsillar abscesses. Cardiovascular: Rate and Rhythm: Normal rate and regular rhythm. Heart sounds: Normal heart sounds. Pulmonary: Effort: Pulmonary effort is normal. Breath sounds: Normal breath sounds. No decreased breath sounds, wheezing, rhonchi or rales. Lymphadenopathy: Head: Right side of head: No submental, submandibular, tonsillar or preauricular adenopathy. Left side of head: No submental, submandibular, tonsillar or preauricular adenopathy. Cervical: No cervical adenopathy. Right cervical: No superficial cervical adenopathy. Left cervical: No superficial cervical adenopathy. Neurological: Mental Status: He is alert. ASSESSMENT/PLAN: 1. Acute suppr otitis media w/o spon rupt ear drum, left ear - ICD9: 382.00, ICD10: H66.002 (primary diagnosis) - Will begin treatment with Amoxicillin for 7 days - Supportive care with plenty of fluids, rest, and analgesia prn. - Follow up in one week if symptoms persist or worsen. 2. URI, acute - ICD9: 465.9, ICD10: J06.9 - Discussed viral etiology and rationale for treatment. - Symptomatic treatment with prn analgesia - Supportive care with fluids and rest - Mucinex - When to seek higher level of care discussed. Diagnosis and treatment plan were discussed and questions were answered to the patient's satisfaction. Pt acknowledged understanding of concepts and follow up plan. Specific signs and symptoms that would indicate the need for higher level of care were discussed in detail warranting prompt ER evaluation. Carina Lara APRN.[facility] 10-20-2022 History of Present illness Narrative Subjective The history is provided by the patient. No international logistics manager was used. HPI Edis Agarwal is a 52 year old male who presents today for CC of left ear pain that started in past 24 hours. He is also having nasal congestion and sinus pressure for 3 days. He has used tylenol with short term relief. Denies any known exposure to covid/flu, declines testing. BP 136/82 Pulse 76 Temp 36.4 C (97.6 F) Resp 18 Wt 73.7 kg (162 lb 6.4 oz) SpO2 97% BMI 31.72 kg/m Social History Tobacco Use Smoking status: Former Packs/day: 2.00 Years: 15.00 Pack years: 30.00 Types: Cigarettes Quit date: 10/15/1996 Years since quittin.0 Smokeless tobacco: Never Tobacco comments: down to less to half PPD, some days none Substance Use Topics Alcohol use: No Drug use: No Types: Marijuana Comment: none since teens PAST MEDICAL HISTORY Diagnosis Date Anxiety disorder 09/23/2015 ANXIETY STATE NOS 02/27/2008 Benign prostatic hypertrophy with urinary obstruction 02/27/2008 Hypertrophy of prostate with urinary obstruction and other lower urinary tract symptoms (LUTS) I have confirmed and edited as necessary, the [facility] Review of Systems Constitutional: Negative for chills, fever and malaise/fatigue. HENT: Positive for congestion, ear pain (left) and sinus pain. Negative for sore throat. Respiratory: Negative for cough, sputum production, shortness of breath and wheezing. Cardiovascular: Negative for chest pain. Gastrointestinal: Negative for abdominal pain, diarrhea, nausea and vomiting. Musculoskeletal: Negative for myalgias. Neurological: Negative for headaches. Objective Physical Exam Vitals and nursing note reviewed. Constitutional: Appearance: He is not toxic-appearing. HENT: Head: Normocephalic and atraumatic. Right Ear: Ear canal and external ear normal. A middle ear effusion (serous) is present. Tympanic membrane is bulging. Left Ear: Ear canal and external ear normal. A middle ear effusion (purulent) is present. Tympanic membrane is injected, erythematous and bulging. Nose: No mucosal edema, congestion or rhinorrhea. Right Sinus: No maxillary sinus tenderness or frontal sinus tenderness. Left Sinus: No maxillary sinus tenderness or frontal sinus tenderness. Mouth/Throat: Pharynx: Uvula midline. No oropharyngeal exudate or posterior oropharyngeal erythema. Tonsils: No tonsillar abscesses. Cardiovascular: Rate and Rhythm: Normal rate and regular rhythm. Heart sounds: Normal heart sounds. Pulmonary: Effort: Pulmonary effort is normal. Breath sounds: Normal breath sounds. No decreased breath sounds, wheezing, rhonchi or rales. Lymphadenopathy: Head: Right side of head: No submental, submandibular, tonsillar or preauricular adenopathy. Left side of head: No submental, submandibular, tonsillar or preauricular adenopathy. Cervical: No cervical adenopathy. Right cervical: No superficial cervical adenopathy. Left cervical: No superficial cervical adenopathy. Neurological: Mental Status: He is alert. ASSESSMENT/PLAN: 1. Acute suppr otitis media w/o spon rupt ear drum, left ear - ICD9: 382.00, ICD10: H66.002 (primary diagnosis) - Will begin treatment with Amoxicillin for 7 days - Supportive care with plenty of fluids, rest, and analgesia prn. - Follow up in one week if symptoms persist or worsen. 2. URI, acute - ICD9: 465.9, ICD10: J06.9 - Discussed viral etiology and rationale for treatment. - Symptomatic treatment with prn analgesia - Supportive care with fluids and rest - Mucinex - When to seek higher level of care discussed. Diagnosis and treatment plan were discussed and questions were answered to the patient's satisfaction. Pt acknowledged understanding of concepts and follow up plan. Specific signs and symptoms that would indicate the need for higher level of care were discussed in detail warranting prompt ER evaluation. Carina Lara APRN.MARLENY documented in this encounter [facility] 07-13-2022 Miscellaneous Notes Patient phones requesting refills as follows: Requested Prescriptions Pending Prescriptions Disp Refills glipiZIDE (GLUCOTROL) 5 mg tablet 30 tablet 5 Sig: Take 1 tablet by mouth once daily. Terazosin HCl (HYTRIN) 10 mg capsule 60 capsule 5 Sig: Take 1-2 capsules by mouth daily at bedtime. As directed (may take 1 twice daily instead of more effective) sertraline (ZOLOFT) 100 mg tablet 30 tablet 5 Sig: Take 1 tablet by mouth once daily. metFORMIN (GLUCOPHAGE) 500 mg tablet 120 tablet 5 Sig: Take 2 tablets by mouth twice daily with meals. . nicotine (NICODERM) 14 mg/24 hr 28 Patch 1 Sig: Apply 1 Patch as directed every 24 hours. No smoking with patch. Please review and advise. Lisa Rosado LPN documented in this encounter [facility] 04-21-2022 Miscellaneous Notes Patient returned call and given provider's message below with verbalized understanding. Faxed lab results, this encounter, referral, ov notes to Dr. Bishop's office, GI. . Patient is not available. will give patient message to call back at his convenience Lab results back. Result note Glucose is high, but suspect he was not fasting. CBC is fine--no signs of anemia. Since he does have rectal bleeding, recommendations would be to pursue colonoscopy to determine the cause, whether it is hemorrhoids, inflammatory bowel, diverticuli, or cancer. Benefits of determining the cause would outweigh the risk of the colonoscopy. He can discuss this with GI. Okay to refer to GI without seeing me first. Would refer to on to specialist in any case. i will assume he prefers to stay in [place] unless told otherwise. Consult placed to Dr Painting at [facility]. Patient called and asked if today's lab results have been completed. Results discussed however explained to patient that PCP has not commented on lab results yet. 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 He is interested in PCP placing a referral to GI, if agreeable. Patient also asking: If patient sees GI specialist, does he need to schedule an appt with Dr. Hernandez as well? Or is seeing GI sufficient at this point? Please advise patient. Thank you. Patient not home. Spoke with patients who states he just had labs done. Patients was given rest of message about fine to start with general surgeon consult as they can do the colonoscopy.Could refer to GI afterwards if needed. Filed consult to General Surgery [facility]. Encounter routed to PSR Added CMP with fatigue diagnosis (to go along with lightheadedness and heaviness). If his blood count is really low (Hg under 8) he has to go to ER to be evaluated. Should come into lab [facility] this week. Would ask him to get done at Specialty center so could get results right away. Our General surgeons are Bertin Alvares or Evelio. We do not have GI specialist in [facility]. Fine to start with general surgeon consult as they can do the colonoscopy.Could refer to GI afterwards if needed. Filed consult to General Surgery [facility]. Pt called and is notified of providers message and instructions. Pt reports lightheadedness and heaviness when he puts his head down. 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 He will melly in and get lab work done. Pt states he would like to be in this area, but doesn't know any GI providers or general surgeons. He states he would like provider to give him suggestions. Please call and advise. Hilary Lee, RN If patient clinically stable, would get labs to make sure has not become anemic from rectal bleeding and would refer to GI or General surgery to be evaluated with colonoscopy. Though it might be hemorrhoids or diverticuli, need to rule out other causes of bleeding, including polyps, cancer and inflammatory bowel disease, See if he has a preference whom to see. If he has increased and/or persistent rectal bleeding with signs of severe anemia (lightheadedness, SOB,VARELA,etc), then should go to ER right away. Protocol Recommedned: ER now. Patient states he would rather not go to ER but will consider it. Requested appt with Dr. Hernandez only, and no appt available with her until May. Patient states he will plan to go to ER sometime. Reason for Disposition [1] MODERATE rectal bleeding (small blood clots, passing blood without stool, or toilet water turns red) AND [2] more than once a day Answer Assessment - Initial Assessment Questions Patient calling to make appt with Dr. Hernandez to rectal bleeding x 1 month. After further triage questioning, patient directed to ER. Patient states he has been having bleeding rectally a 1 month. Having fairly normal bowel movements however states it is surrounded by red bloody liquid and sometimes only expels red liquid that looks like bloody spit . Experiencing moderate dizziness, headache, constant abdominal discomfort (ranging to mild to moderate) and having hot and cold feeling at times. 1. APPEARANCE of BLOOD: red 2. AMOUNT: Not sure how much 3. FREQUENCY: each bowel movement there is visible blood 4. ONSET: approx 1 month ago 5. DIARRHEA: Having firm bowel movements with red liquid surrounding 6. CONSTIPATION: no 7. RECURRENT SYMPTOMS: no 8. BLOOD THINNERS: no 9. OTHER SYMPTOMS: as above. Denies any urinary difficulties. Protocols used: RECTAL [id number] documented in this encounter [facility] 03-06-2022 Miscellaneous Notes Patient notified of providers message and verbalized understanding Seen in clinic 03/03/22 by Nell Hernandez MD. Labs same day. DM shows good control. Labwork in acceptable range. Component Latest Ref Rng & Units 02/01/2021 03/03/2022 WBC 3.70 - 11.00 k/uL 7.14 10.37 RBC 4.20 - 6.00 m/uL 5.23 4.67 Hemoglobin 13.0 - 17.0 g/dL 15.3 13.5 Hematocrit 39.0 - 51.0 % 46.0 41.2 MCV 80.0 - 100.0 fL 88.0 88.2 MCH 26.0 - 34.0 pg 29.3 28.9 MCHC 30.5 - 36.0 g/dL 33.3 32.8 RDW-CV 11.5 - 15.0 % 13.6 14.3 Platelet Count 150 - 400 k/uL 273 282 MPV 9.0 - 12.7 fL 10.0 10.5 Neut% % 83.8 Abs Neut (ANC) 1.45 - 7.50 k/uL 8.69 (H) Lymph% % 9.5 Abs Lymph 1.00 - 4.00 k/uL 0.99 (L) Crosby% % 5.7 Abs Crosby <0.87 k/uL 0.59 Eosin% % 0.0 Abs Eosin <0.46 k/uL <0.03 Baso% % 0.2 Abs Baso <0.11 k/uL <0.03 Immature Gran % % 0.8 IMMATURE GRANS (ABS) <0.10 k/uL 0.08 NRBC /100 WBC 0.0 Absolute nRBC <0.01 k/uL <0.01 <0.01 DTYPE Auto Protein, Total 6.3 - 8.0 g/dL 7.2 7.3 Albumin 3.9 - 4.9 g/dL 4.7 4.8 Calcium 8.5 - 10.2 mg/dL 9.9 9.9 Bilirubin, Total 0.2 - 1.3 mg/dL 0.6 0.4 Alkaline Phosphatase 38 - 113 U/L 45 39 AST 14 - 40 U/L 40 33 Glucose 74 - 99 mg/dL 113 (H) 148 (H) BUN 9 - 24 mg/dL 11 20 Creatinine 0.73 - 1.22 mg/dL 0.84 0.81 Sodium 136 - 144 mmol/L 139 136 Potassium 3.7 - 5.1 mmol/L 4.5 4.9 Chloride 97 - 105 mmol/L 100 99 CO2 22 - 30 mmol/L 24 25 Anion Gap 9 - 18 mmol/L 15 12 ALT 10 - 54 U/L 35 36 eGFR- >60 eGFR-All Other Races . >60 eGFR >=60 mL/min/1.73m 105 Cholesterol, Total <200 mg/dL 226 (H) Triglyceride <150 mg/dL 134 HDL Cholesterol >39 mg/dL 48 LDL Cholesterol <100 mg/dL 151 (H) Non HDL Cholesterol <130 mg/dL 178 (H) Fasting Time hrs 12 VLDL Cholesterol <30 mg/dL 27 TC:HDL Ratio <5.10 4.71 LDL:HDL Ratio <2.54 3.15 (H) Total Cholesterol, Nonfasting <200 mg/dL 194 Triglycerides, Nonfasting <150 mg/dL 76 HDL Cholesterol, Nonfasting >39 mg/dL 57 LDL Cholesterol, Nonfasting <100 mg/dL 122 (H) Non HDL Cholesterol, Nonfasting <130 mg/dL 137 (H) VLDL Cholesterol, Nonfasting <30 mg/dL 15 Total Chol/HDL Ratio, Nonfasting <5.10 mg/dL 3.40 LDL/HDL Ratio, Nonfasting <2.54 mg/dL 2.14 Creatinine, Ur Random (UCRR) 20 - 300 mg/dL 41.5 Albumin, Urine Random mg/L <12.0 Albumin/Creat Ratio <30 mg/g Not calculated Hemoglobin A1C 4.3 - 5.6 % 6.1 (H) 6.0 (H) Estimated Average Glucose mg/dL 128 126 The 10-year ASCVD risk score ([place] RO Jr., et al., 2013) is: 8.3% Values used to calculate the score: Age: 51 years Sex: Male Is Non- : No Diabetic: Yes Tobacco smoker: No Systolic Blood Pressure: 136 mmHg Is BP treated: No HDL Cholesterol: 57 mg/dL Total Cholesterol: 194 mg/dL documented in this encounter [facility] 03-03-2022 History of Present illness Narrative This note was created using VideoJaxriter. Subjective Edis Agarwal is a 51 year old male. Patient presents with: F/U 6 months SUBJECTIVE: Edis Agarwal is a 51 year old year old gentleman here today for 6 month follow up appointment for review of medical conditions. Had left sided head pain and neck pain. No signs of ear infection on exam. Lasted for 2 to 3 weeks with affecting memory. That resolved. Had gained weight over winter. Thinks sugar might have been up. Eating better and getting protein in like . Had pain resolved. Thinks was a pinched nerve. 4 months without smoking then yesterday stress and started again. Patches help. Discussed had COVID before. PAST MEDICAL HISTORY Diagnosis Date Anxiety disorder 09/23/2015 ANXIETY STATE NOS 02/27/2008 Benign prostatic hypertrophy with urinary obstruction 02/27/2008 Hypertrophy of prostate with urinary obstruction and other lower urinary tract symptoms (LUTS) Current Outpatient Medications Medication Sig nicotine (NICODERM) 14 mg/24 hr Apply 1 Patch as directed every 24 hours. No smoking with patch. tiZANidine (ZANAFLEX) 4 mg tablet Take 1 tablet by mouth every 8 hours as needed (muscle spasms). meloxicam (MOBIC) 15 mg tablet Take 1 tablet by mouth once daily. for pain. Take with food. metFORMIN (GLUCOPHAGE) 500 mg tablet Take 2 tablets by mouth twice daily with meals. . Terazosin HCl (HYTRIN) 10 mg capsule Take 1-2 capsules by mouth daily at bedtime. As directed (may take 1 twice daily instead of more effective) sertraline (ZOLOFT) 100 mg tablet Take 1 tablet by mouth once daily. glipiZIDE (GLUCOTROL) 5 mg tablet Take 1 tablet by mouth once daily. MULTIVITAMIN TAB Take one(1) tablet daily. blood sugar diagnostic (BLOOD GLUCOSE TEST) test strip Test blood sugar(s) 2 times daily. Dx: Type 2 DM - Uncontrolled E11.65 Insulin: No Lancets lancets Test blood sugar(s) 2 times daily. Dx: Type 2 DM - Uncontrolled E11.65 Insulin: No No current facility-administered medications for this visit. Review of Systems Objective BP 136/84 Pulse (!) 57 Wt 78.9 kg (174 lb) SpO2 97% BMI 33.98 kg/m Last 5 Encounter Wt Readings: Date: Wt: 03/03/2022 78.9 kg (174 lb) 02/10/2022 79.8 kg (176 lb) 02/01/2021 78.1 kg (172 lb 3.2 oz) 09/17/2020 77.1 kg (170 lb) 07/16/2020 68.5 kg (151 lb) No waist measurement recorded Estimated body mass index is 33.98 kg/m as calculated from the following: Height as of 06/20/16: 152.4 cm (5'). Weight as of this encounter: 78.9 kg (174 lb). Last 5 Encounter BP Readings: Date: BP: 03/03/2022 136/84 02/10/2022 140/90 02/01/2021 122/76 09/17/2020 112/70 07/16/2020 120/80 Physical Exam Vitals reviewed. Constitutional: Appearance: Normal appearance. Eyes: Conjunctiva/sclera: Conjunctivae normal. Cardiovascular: Rate and Rhythm: Normal rate and regular rhythm. Heart sounds: Normal heart sounds. Pulmonary: Effort: Pulmonary effort is normal. Breath sounds: Normal breath sounds. Skin: General: Skin is warm and dry. Neurological: General: No focal deficit present. Mental Status: He is alert and oriented to person, place, and time. Psychiatric: Mood and Affect: Mood normal. Behavior: Behavior normal. Thought Content: Thought content normal. Judgment: Judgment normal. Labs ordered--not yet done. Will get on way out Assessment and Plan ASSESSMENT/PLAN: 1. Controlled type 2 diabetes mellitus without complication, without long-term current use of insulin (HCC) - ICD9: 250.00, ICD10: E11.9 (primary diagnosis) Controlled. - Continue current medications 2. Hypercholesteremia - ICD9: 272.0, ICD10: E78.00 Check labs. Needs to keep working on diet and exercise with lifestyle changes for effective weight loss as well as prevention of DM, and control of BP and lipids. 3. Class 1 obesity due to excess calories without serious comorbidity with body mass index (BMI) of 32.0 to 32.9 in adult - ICD9: 278.00, V85.32, ICD10: E66.09, Z68.32 Needs to keep working on diet and exercise with lifestyle changes for effective weight loss as well as prevention of DM, and control of BP and lipids. Nell Hernandez MD documented in this encounter [facility] 02-27-2022 Miscellaneous Notes Patient has been identified by name and date of : Yes Patient phones for refill(s): Pending Prescriptions Disp Refills NICOTINE 14 MG/24 HR DAILY TRANSDERMAL PATCH 30 Patch 0 Sig: Apply 1 Patch as directed every 24 hours. No smoking with patch. LUCERO: No Date of last office visit with pcp: 08/19/21 Next OV 03/03/22 Date of last office visit in primary care: 02/10/22 Last 2 Encounter Wt Readings: Date: Wt: 02/10/2022 79.8 kg (176 lb) 02/01/2021 78.1 kg (172 lb 3.2 oz) Previous labs/tests for medication: Not applicable Please advise. Thank you. Felicia Patricia RN documented in this encounter [facility] 02-10-2022 History of Present illness Narrative Subjective Edis Agarwal is a 51 year old male. HPI HPI excerpted from previous visit with me: Presents today with report of neck discomfort, inner an outer for the last couple of days, notes that he has had exposure to paint fumes, wonders if this might be cause. No fever, negative strep in urgent care. Noes productive cough at times. Current smoker 1pk/day. Notes heartburn and reflux symptoms occasionally. No ETOH use., does drink caffeinated beverages. No report abdominal pain, nausea vomiting diarrhea constipation blood in stool or black or tarry stool. His caregiver, notes stress, is feeling fatigued. Lymphadenopathy 2017, negative CT neck. Today notes left side of head with pain. Present for couple weeks. Achey most of the time. Notes neck is stiff. Left ear ar pain present. Hearing unchanged. Notes no sinus congestion or drainage. No PND, no sore throat. No fever. No sick contacts. Notes decreased vision. States harder to see things. Notes [facility], Dr Childers, last seen about two years ago. States not taking anything OTC. Notes moderate to severe discomfort. Neck feels stiff. Decreased ROM of neck, turning head to left or right. Notes no increase of neck extension or change in activities. Aggravate: increased over the course of the day, best in a.m. Lying on left side. Alleviate: Nothing noted Last 14 Encounter BP Readings: Date: BP: 02/10/2022 140/90 02/01/2021 122/76 09/17/2020 112/70 07/16/2020 120/80 06/26/2020 102/64 04/02/2020 122/72 10/03/2019 136/84 06/30/2019 148/86 03/18/2019 108/66 03/17/2019 130/82 03/06/2019 122/88 07/27/2018 130/76 06/19/2018 108/70 05/27/2018 112/70 Review of Systems Constitutional: Negative. HENT: Negative. Musculoskeletal: Positive for neck pain and neck stiffness. Neurological: Positive for headaches. Negative for facial asymmetry and speech difficulty. Hematological: Negative for adenopathy. Does not bruise/bleed easily. Objective BP 140/90 Pulse 66 Temp 36.4 C (97.5 F) Resp 16 Wt 79.8 kg (176 lb) SpO2 98% BMI 34.37 kg/m Physical Exam Vitals and nursing note reviewed. Constitutional: General: He is not in acute distress. Appearance: He is well-developed. He is not diaphoretic. HENT: Head: Normocephalic and atraumatic. Right Ear: Tympanic membrane, ear canal and external ear normal. Left Ear: Tympanic membrane, ear canal and external ear normal. Mouth/Throat: Mouth: Mucous membranes are moist. Eyes: Conjunctiva/sclera: Conjunctivae normal. Neck: Thyroid: No thyroid mass or thyromegaly. Vascular: Normal carotid pulses. No carotid bruit or JVD. Trachea: No tracheal tenderness or tracheal deviation. Comments: neck, occipital area TTP, decreased ROM left to right, increased discomfort with flexion, extension Cardiovascular: Rate and Rhythm: Normal rate and regular rhythm. Heart sounds: Normal heart sounds. No murmur heard. No friction rub. No gallop. Pulmonary: Effort: Pulmonary effort is normal. No respiratory distress. Breath sounds: Normal breath sounds. No stridor. No wheezing or rales. Abdominal: General: Bowel sounds are normal. There is no distension. Palpations: Abdomen is soft. There is no mass. Tenderness: There is no abdominal tenderness. There is no guarding or rebound. Musculoskeletal: Cervical back: No edema, erythema or rigidity. Decreased range of motion. Skin: General: Skin is warm and dry. Neurological: General: No focal deficit present. Mental Status: He is alert and oriented to person, place, and time. Cranial Nerves: No cranial nerve deficit. Sensory: No sensory deficit. Motor: No weakness. Coordination: Coordination normal. Gait: Gait normal. Assessment and Plan ASSESSMENT/PLAN: 1. Cervicalgia - ICD9: 723.1, ICD10: M54.2 (primary diagnosis) - TIZANIDINE 4 MG TABLET - MELOXICAM 15 MG TABLET - XR CERV GENERAL 2V AP/LAT - CONSULT TO PHYSICAL THERAPY 2. Acute nonintractable headache, unspecified headache type - ICD9: 784.0, ICD10: R51.9 - TIZANIDINE 4 MG TABLET - MELOXICAM 15 MG TABLET - XR CERV GENERAL 2V AP/LAT - CONSULT TO PHYSICAL THERAPY 3. Controlled type 2 diabetes mellitus without complication, without long-term current use of insulin (HCC) - ICD9: 250.00, ICD10: E11.9 - HGB A1C - COMP METABOLIC PANEL - CBC + DIFF - LIPID PANEL, NONFASTING - ALBUMIN/CREAT RATIO RND UR Report and exam most consistent with tension type headache with neck strain Recommend nonsteroidal anti-inflammatory medication daily for several days, muscle relaxer at bedtime. X-ray today. Consider physical therapy if not getting sufficient relief with above. He will let us know if not feeling improved or other concerning symptoms. Due for eye recheck [facility]. To check labs today. Follow up with PCP February 2022, sooner if not feeling improved with the above or if testing indicates sooner recheck Gertrude Cespedes APRN.CNS Medical Decision Making: Problems: Low: Acute, uncomplicated illness or injury Data: Unique test(s) ordered: 3+ Risk: Moderate: Drug management Medical Decision Making Level: 4 - Moderate documented in this encounter [facility] 02-01-2022 Miscellaneous Notes Patient has been identified by name and date of : Yes Patient phones for refill(s): Pending Prescriptions Disp Refills NICOTINE 14 MG/24 HR DAILY TRANSDERMAL PATCH 30 Patch 0 Sig: Apply 1 Patch as directed every 24 hours. No smoking with patch. LUCERO: No Date of last office visit with pcp: 08-19-21. Next appt: 03-03-22 Last 2 Encounter Wt Readings: Date: Wt: 02/01/2021 78.1 kg (172 lb 3.2 oz) 09/17/2020 77.1 kg (170 lb) Previous labs/tests for medication: Blood Pressure: BUN (mg/dL) Date Value 02/01/2021 11 Sodium (mmol/L) Date Value 02/01/2021 139 Last 1 Encounter BP Readings: Date: BP: 02/01/2021 122/76 Liver Function: ALT (U/L) Date Value 02/01/2021 35 AST (U/L) Date Value 02/01/2021 40 Please advise. Thank you. Prosper Santos RN documented in this encounter [facility] documented as of this encounter (statuses as of 02/01/2022) [facility] History of Past illness Narrative* Problem Noted Date Resolved Date Anxiety state, unspecified 02/27/200809/19 Overview: Has used Buspar, Xanax, Paxil in the past per his old records Weaned himself off the Seroquel and the Paxil as of 02-19 Seeing a counselor as of 02-19: declined seeing Psychiatry Insomnia, unspecified 02/27/2008 09/19/2011 Overview: Reviewed sleep hygiene issues in 02-19: discussed keeping the TV off before bed and during night documented as of this encounter (statuses as of 02/10/2022) [facility] History of Past illness Narrative* Problem Noted Date Resolved Date Anxiety state, unspecified 02/27/200809/19 Overview: Has used Buspar, Xanax, Paxil in the past per his old records Weaned himself off the Seroquel and the Paxil as of 02-19 Seeing a counselor as of 02-19: declined seeing Psychiatry Insomnia, unspecified 02/27/2008 09/19/2011 Overview: Reviewed sleep hygiene issues in 02-19: discussed keeping the TV off before bed and during night documented as of this encounter (statuses as of 02/27/2022) [facility] History of Past illness Narrative* Problem Noted Date Resolved Date Anxiety state, unspecified 02/27/200809/19 Overview: Has used Buspar, Xanax, Paxil in the past per his old records Weaned himself off the Seroquel and the Paxil as of 02-19 Seeing a counselor as of 02-19: declined seeing Psychiatry Insomnia, unspecified 02/27/2008 09/19/2011 Overview: Reviewed sleep hygiene issues in 02-19: discussed keeping the TV off before bed and during night documented as of this encounter (statuses as of 03/06/2022) [facility] History of Past illness Narrative* Problem Noted Date Resolved Date Anxiety state, unspecified 02/27/200809/19 Overview: Has used Buspar, Xanax, Paxil in the past per his old records Weaned himself off the Seroquel and the Paxil as of 02-19 Seeing a counselor as of 02-19: declined seeing Psychiatry Insomnia, unspecified 02/27/2008 09/19/2011 Overview: Reviewed sleep hygiene issues in 02-19: discussed keeping the TV off before bed and during night documented as of this encounter (statuses as of 04/21/2022) [facility] History of Past illness Narrative* Problem Noted Date Resolved Date Anxiety state, unspecified 02/27/200809/19 Overview: Has used Buspar, Xanax, Paxil in the past per his old records Weaned himself off the Seroquel and the Paxil as of 02-19 Seeing a counselor as of 02-19: declined seeing Psychiatry Insomnia, unspecified 02/27/2008 09/19/2011 Overview: Reviewed sleep hygiene issues in 02-19: discussed keeping the TV off before bed and during night documented as of this encounter (statuses as of 05/02/2022) [facility] History of Past illness Narrative* Problem Noted Date Resolved Date Anxiety state, unspecified 02/27/200809/19 Overview: Has used Buspar, Xanax, Paxil in the past per his old records Weaned himself off the Seroquel and the Paxil as of 02-19 Seeing a counselor as of 02-19: declined seeing Psychiatry Insomnia, unspecified 02/27/2008 09/19/2011 Overview: Reviewed sleep hygiene issues in 02-19: discussed keeping the TV off before bed and during night documented as of this encounter (statuses as of 07/13/2022) [facility] History of Past illness Narrative* Problem Noted Date Resolved Date Anxiety state, unspecified 02/27/200809/19 Overview: Has used Buspar, Xanax, Paxil in the past per his old records Weaned himself off the Seroquel and the Paxil as of 02-19 Seeing a counselor as of 02-19: declined seeing Psychiatry Insomnia, unspecified 02/27/2008 09/19/2011 Overview: Reviewed sleep hygiene issues in 02-19: discussed keeping the TV off before bed and during night documented as of this encounter (statuses as of 10/20/2022) [facility] History of Past illness Narrative* Problem Noted Date Resolved Date Anxiety state, unspecified 02/27/200809/19 Overview: Has used Buspar, Xanax, Paxil in the past per his old records Weaned himself off the Seroquel and the Paxil as of 02-19 Seeing a counselor as of 02-19: declined seeing Psychiatry Insomnia, unspecified 02/27/2008 09/19/2011 Overview: Reviewed sleep hygiene issues in 02-19: discussed keeping the TV off before bed and during night documented as of this encounter (statuses as of 10/27/2022) [facility] History of Past illness Narrative* Problem Noted Date Resolved Date Anxiety state, unspecified 02/27/200809/19 Overview: Has used Buspar, Xanax, Paxil in the past per his old records Weaned himself off the Seroquel and the Paxil as of 02-19 Seeing a counselor as of 02-19: declined seeing Psychiatry Insomnia, unspecified 02/27/2008 09/19/2011 Overview: Reviewed sleep hygiene issues in 02-19: discussed keeping the TV off before bed and during night documented as of this encounter (statuses as of 11/17/2022) [facility] History of Past illness Narrative* Problem Noted Date Resolved Date Anxiety state, unspecified 02/27/200809/19 Overview: Has used Buspar, Xanax, Paxil in the past per his old records Weaned himself off the Seroquel and the Paxil as of 02-19 Seeing a counselor as of 02-19: declined seeing Psychiatry Insomnia, unspecified 02/27/2008 09/19/2011 Overview: Reviewed sleep hygiene issues in 02-19: discussed keeping the TV off before bed and during night documented as of this encounter (statuses as of 03/13/2023) [facility] History of Past illness Narrative* Problem Noted Date Diagnosed Date Resolved Date Anxiety state, unspecified 02/27/2008 1 11/20/2010 Overview: Has used Buspar, Xanax, Paxil in the past per his old records Weaned himself off the Seroquel and the Paxil as of 02-19 Seeing a counselor as of 02-19: declined seeing Psychiatry Insomnia, unspecified 02/27/20082010 Overview: Reviewed sleep hygiene issues in 02-19: discussed keeping the TV off before bed and during night documented as of this encounter (statuses as of 04/23/2023) [facility] History of Past illness Narrative* Problem Noted Date Diagnosed Date Resolved Date Anxiety state, unspecified 02/27/2008 1 11/20/2010 Overview: Has used Buspar, Xanax, Paxil in the past per his old records Weaned himself off the Seroquel and the Paxil as of 02-19 Seeing a counselor as of 02-19: declined seeing Psychiatry Insomnia, unspecified 02/27/20082010 Overview: Reviewed sleep hygiene issues in 02-19: discussed keeping the TV off before bed and during night documented as of this encounter (statuses as of 07/02/2023) [facility] [place] [facility] Diagnosis Cervicalgia- Primary Acute nonintractable headache, unspecified headache type Controlled type 2 diabetes mellitus without complication, without long-term current use of insulin (HCC) [facility] Diagnosis Rectal bleeding- Primary Hemorrhage of rectum and anus Fatigue, unspecified type [facility] Diagnosis Controlled type 2 diabetes mellitus without complication, without long-term current use of insulin (HCC)- Primary Hypercholesteremia Pure hypercholesterolemia Class 1 obesity due to excess calories without serious comorbidity with body mass index (BMI) of 32.0 to 32.9 in adult [facility] Diagnosis Benign prostatic hyperplasia with urinary obstruction Anxiety disorder, unspecified type PTSD (post-traumatic stress disorder) Posttraumatic stress disorder [facility] Diagnosis Acute suppr otitis media w/o spon rupt ear drum, left ear- Primary URI, acute Acute upper respiratory infections of unspecified site [facility] Diagnosis Uncontrolled type 2 diabetes mellitus with hyperglycemia (HCC)- Primary [facility] Diagnosis Controlled type 2 diabetes mellitus with hyperglycemia, without long-term current use of insulin (HCC)- Primary Ulcerative pancolitis with complication (HCC) [facility] Diagnosis Sinobronchitis- Primary Unspecified sinusitis (chronic) [facility] Diagnosis Uncontrolled type 2 diabetes mellitus with hyperglycemia (HCC)- Primary Fatigue, unspecified type Fluid retention Other fluid overload Polyarthralgia Pain in joint, multiple sites Hypercholesteremia Pure hypercholesterolemia Ulcerative pancolitis with complication (HCC) Tobacco abuse Tobacco use disorder documented in this encounter [facility] Advance Directives Documents on File Type Date Recorded Patient Director Of Database Marketing Expl anation Advance Directive(s) Documents on File Type Date Recorded Patient Director Of Database Marketing Expl anation Advance Directive(s) Reason for Referral Specialty Diagnoses / Procedures Referred By Contac t Referred To Contact [facility] Diagnoses Cervicalgia Acute nonintractable headache, unspecified headache type Procedures CONSULT TO PHYSICAL THERAPY PHYSICAL THERAPY EVALUATION HIGH COMPLEX 45 MINS Gertrude Cespedes, PONY ROUGHER.[employer] [address] [place] [address] [facility] [place] [address] [place] [address] Referral ID Status Reason Start Date Expiration Date Visits Requested Visits Authorized [id number] Pending Review Auto-Generat ed Referral 02/10/2022 02/10/2023 1 1 Specialty Diagnoses / Procedures Referred By Contac t Referred To Contact XR IMAGING Diagnoses Cervicalgia Acute nonintractable headache, unspecified headache type Procedures XR CERV GENERAL 2V AP/LAT RADEX SPINE CERVICAL 2 OR 3 VIEWS Gertrude Cespedes, PONY ROUGHER.[employer] [address] [place] [address] Xr Imaging Referral ID Status Reason Start Date Expiration Date Visits Requested Visits Authorized [id number] Pending Review Auto-Generat ed Referral 02/10/2022 03/12/2023 1 1 Specialty Diagnoses / Procedures Referred By Contac t Referred To Contact Gastroenterology Diagnoses Rectal bleeding Procedures CONSULT TO GASTROENTEROLOGY Nell Hernandez MD [address] [place] [address] Gerard Bishop, DO [address] [address] Referral ID Status Reason Start Date Expiration Date Visits Requested Visits Authorized [id number] Ref Not Required PCP Requested Referral 04/20/2022 04/20/2023 1 1 Specialty Diagnoses / Procedures Referred By Contac t Referred To Contact General Surgery Diagnoses Rectal bleeding Procedures CONSULT TO GENERAL SURGERY OFFICE/OUTPATIENT [facility] MDM 60-74 MINUTES Nell Hernandez MD [address] [place] [address] Referral ID Status Reason Start Date Expiration Date Visits Requested Visits Authorized [id number] Authorized PCP Requested Referral 04/20/2022 04/20/2023 1 1 Specialty Diagnoses / Procedures Referred By Contac t Referred To Contact Gastroenterology Diagnoses Ulcerative pancolitis with complication (HCC) Procedures CONSULT TO GASTROENTEROLOGY OFFICE/OUTPATIENT NEW HIGH MDM 60-74 MINUTES Nell Hernandez MD [address] [place] [address] Referral ID Status Reason Start Date Expiration Date Visits Requested Visits Authorized [id number] Authorized PCP Requested Referral 10/23/2022 10/23/2023 1 1 Summary Purpose Family History No Family History Records Found Additional Source Comments Source Comments (unrecognize d section and content) In the event this informatio n is protected by the Federal Confidentiality of Alcohol and Drug Abuse Patient Records regulations: The Federal rules restrict any use of the information to criminally investigate or prosecute any alcohol or drug abuse patient.[facility] the event this information is protected by the Federal Confidentiality of Alcohol and Drug Abuse Patient Records regulations: The Federal rules restrict any use of the information to criminally investigate or prosecute any alcohol or drug abuse patient.[facility] the event this information is protected by the Federal Confidentiality of Alcohol and Drug Abuse Patient Records regulations: The Federal rules restrict any use of the information to criminally investigate or prosecute any alcohol or drug abuse patient.[facility] the event this information is protected by the Federal Confidentiality of Alcohol and Drug Abuse Patient Records regulations: The Federal rules restrict any use of the information to criminally investigate or prosecute any alcohol or drug abuse patient.[facility] Hospital[facility] the event this information is protected by the Federal Confidentiality of Alcohol and Drug Abuse Patient Records regulations: The Federal rules restrict any use of the information to criminally investigate or prosecute any alcohol or drug abuse patient.[facility] the event this information is protected by the Federal Confidentiality of Alcohol and Drug Abuse Patient Records regulations: The Federal rules restrict any use of the information to criminally investigate or prosecute any alcohol or drug abuse patient.[facility] the event this information is protected by the Federal Confidentiality of Alcohol and Drug Abuse Patient Records regulations: The Federal rules restrict any use of the information to criminally investigate or prosecute any alcohol or drug abuse patient.[facility] Hospital[facility] the event this information is protected by the Federal Confidentiality of Alcohol and Drug Abuse Patient Records regulations: The Federal rules restrict any use of the information to criminally investigate or prosecute any alcohol or drug abuse patient.[facility] Hospital[facility] the event this information is protected by the Federal Confidentiality of Alcohol and Drug Abuse Patient Records regulations: The Federal rules restrict any use of the information to criminally investigate or prosecute any alcohol or drug abuse patient.[facility] Hospital[facility] the event this information is protected by the Federal Confidentiality of Alcohol and Drug Abuse Patient Records regulations: The Federal rules restrict any use of the information to criminally investigate or prosecute any alcohol or drug abuse patient.[facility] Hospital[facility] the event this information is protected by the Federal Confidentiality of Alcohol and Drug Abuse Patient Records regulations: The Federal rules restrict any use of the information to criminally investigate or prosecute any alcohol or drug abuse patient.[facility] Hospital[facility] the event this information is protected by the Federal Confidentiality of Alcohol and Drug Abuse Patient Records regulations: The Federal rules restrict any use of the information to criminally investigate or prosecute any alcohol or drug abuse patient.[facility] Hospital[facility] the event this information is protected by the Federal Confidentiality of Alcohol and Drug Abuse Patient Records regulations: The Federal rules restrict any use of the information to criminally investigate or prosecute any alcohol or drug abuse patient.[facility] Reason for Visit (unrecogniz ed section and content) Reason Comments Memory Problems Pain L ear and neck gland s Reason Onset Date Comments Refill Request 02/27/2022 Reason Comments Results, Lab Reason Comments Rectal Problem-bleeding x 1 month Reason Comments F/U 6 months Reason Onset Date Comments Refill Request 07/13/2022 Reason Comments Ear Pain MARYANA ear pain, L wors e x3 days Reason Comments Results Reason Comments F/U 6 months Reason Comments Head Congestion chest congestion, co ugh x 2 weeks Reason Onset Date Comments Refill Request 07/02/2023 Care Teams (unrecognized sec tion and content) Hand Tacker Relationship Specialty Start Date End Date Nell Hernandez MD [facility] [place] [address] PCP - General Internal Medicine 09/11/17 Hand Tacker Relationship Specialty Start Date End Date Nell Hernandez MD [address] [place] [address], [place] [address] PCP - General Internal Medicine 09/11/17 Hand Tacker Relationship Specialty Start Date End Date Nell Hernandez MD [address] [place] [address], [place] [address] PCP - General Internal Medicine 09/11/17 Hand Tacker Relationship Specialty Start Date End Date Nell Hernandez MD [address] [place] [address], [place] [address] PCP - General Internal Medicine 09/11/17 Hand Tacker Relationship Specialty Start Date End Date Nell Hernandez MD [address] [place] [address], [place] [address] PCP - General Internal Medicine 09/11/17 Hand Tacker Relationship Specialty Start Date End Date Nell Hernandez MD [address] [place] [address], [place] [address] PCP - General Internal Medicine 09/11/17 Hand Tacker Relationship Specialty Start Date End Date Nell Hernandez MD [address] [place] [address], [place] [address] PCP - General Internal Medicine 09/11/17 Hand Tacker Relationship Specialty Start Date End Date Nell Hernandez MD [address] [place] [address], [place] [address] PCP - General Internal Medicine 09/11/17 Hand Tacker Relationship Specialty Start Date End Date Nell Hernandez MD [address] [place] [address], [place] [address] PCP - General Internal Medicine 09/11/17 Hand Tacker Relationship Specialty Start Date End Date Nell Hernandez MD [address] [place], [place] [id number] PCP - General Internal Medicine 09/11/17 Hand Tacker Relationship Specialty Start Date End Date Nell Hernandez MD [address] [place], [place] [address] PCP - General Internal Medicine 09/11/17 (unrecognized sect ion and content) No Status Records Found INFORMATION SOURCE (unrecogn ized section and content) FOR RECORDS PERTAINING TO PATIENTS WHO ARE OR HAVE BEEN ENROLLED IN A CHEMICAL DEPENDENCY/SUBSTANCEABUSE PROGRAM, SOME INFORMATION MAY BE OMITTED. This clinical summary was aggregated from multiple sources. Caution should be exercised in using it in the provision of clinical care. This summary normalizes information from multiple sources, and as a consequence, information in this document may materially change the coding, format and clinical context of patient data. In addition, data may be omitted in some cases. CLINICAL DECISIONS SHOULD BE BASED ON THE PRIMARY CLINICAL RECORDS. [employer] provides no warranty or guarantee of the accuracy or completeness of information in this document.
--- NOTE | 2023-10-13 04:30 | RAD_ITS ---
INDICATION: atraumatic right shoulder pain EXAMINATION/TECHNIQUE: X-RAY - RIGHT XR Shoulder Min 2 Views 4 VIEWS COMPARISON: No relevant prior comparison study available FINDINGS: SOFT TISSUES: Calcific tendinitis of the supraspinatus. No radiopaque foreign body. BONES/JOINTS: Moderate degenerative arthrosis in the acromioclavicular joint. No sclerotic or destructive changes observed. RAD/Shoulder min 2 Views IMPRESSION: Moderate degenerative arthrosis in the acromioclavicular joint. Calcific tendinitis of the supraspinatus. Electronically Signed: Loki Powell MD at 7:56 EST ,
[2023-10-13] MEDS: Lidocaine 1% (20 ml mdv) 20 ML Vial 10 ML INFILT (06:06)
[2023-10-13] MEDS: Triamcinolone Acetonide 40 MG/ML Vial INTRAARTIC (06:06)
== END 2023-10-13 06:06 | disposition home or self-care (01) ==
PROVIDERS: Emergency Provider Emergency Medicine; PCP Internal Medicine; Visit Provider Emergency Medicine
DX: M19.011 Primary osteoarthritis, right shoulder (principal); E11.9 Type 2 diabetes mellitus without complications; G89.29 Other chronic pain; Z87.891 Personal history of nicotine dependence
CPT/HCPCS: 73030; 99282